=== PATIENT | female | born 1955 | race Caucasian/White ===

== ENCOUNTER 2020-02-27 14:53 | Outpatient (CLI) | payer MEDICARE, SELFPAY ==
--- NOTE | ~2020-02-27 | MM_ITS ---
EXAMINATION: MM screening tu BI w lamberto HISTORY: Screening TECHNIQUE: Craniocaudal and mediolateral oblique 3-D tomosynthesis images were obtained and synthetic 2-D images were generated. CAD analysis was submitted and interpreted. COMPARISON: Comparison to multiple prior studies sequentially, with oldest reviewed study dated 03/06. BREAST PARENCHYMAL COMPOSITION: Breast composed of scattered areas of fibroglandular density. FINDINGS: There is no evidence of suspicious mass, calcification, or architectural distortion to sugg est malignancy in either breast. There has been no suspicious interval change. IMPRESSION: 1. No mammographic evidence of malignancy. 2. Recommend routine screening mammography in one year. BI-RADS Category 1: Negative Reviewed, dictated and finalized at location A. COMPLIANCE
== END 2020-02-27 14:54 | disposition home or self-care (01) ==
LOC: ANHIMG 14:58
PROVIDERS: PCP Internal Medicine; Visit Provider Internal Medicine
DX: Z12.31 Encounter for screening mammogram for malignant neoplasm of breast (principal)
CPT/HCPCS: 77063; 77067

== ENCOUNTER → 2021-01-20 11:08 | Outpatient (CLI) | payer MEDICARE, SELFPAY ==
--- NOTE | ~2021-01-20 | XR_ITS ---
EXAMINATION:XR_CERV2-3V_CR DATE: 01/20/2021 11:32 INDICATION: Neck pain TECHNIQUE: AP, lateral, lateral swimmers and odontoid views of the cervical spine are provided. COMPARISON: 12/16/2015 FINDINGS: There are 3 mm of stable anterolisthesis of C3 on C4. There are changes of anterior fusion at C5-6. There is severe loss of intervertebral disc space height at C6-7. There is moderate facet os teoarthritis at C5-6. The odontoid is intact. No fracture is identified. The vertebral body heights a re maintained. Prevertebral soft tissues are normal. IMPRESSION: 1. Changes of anterior fusion at C5-6 with moderate to severe spondylosis at C6-7. No acute findings. Reviewed, dictated and finalized at location A. RVENTIONAL CARDIOLOGIST IMPRESSION: 1. Changes of anterior fusion at C5-6 with moderate to severe spondylosis at C6 -7. No acute findings.
== END ==
PROVIDERS: PCP Internal Medicine; Visit Provider Internal Medicine
DX: M47.892 Other spondylosis, cervical region (principal); Z98.1 Arthrodesis status
CPT/HCPCS: 72040

== ENCOUNTER → 2021-02-04 12:08 | Outpatient (CLI) | payer MEDICARE, SELFPAY ==
--- NOTE | ~2021-02-04 | MR_ITS ---
EXAMINATION: MR cervical spine wo con DATE: 02/04/2021 12:54 INDICATION: Neck pain. TECHNIQUE: Magnetic resonance imaging (MRI) of the cervical spine was performed without intravenous c ontrast. Sequences included sagittal T2-weighted FSE, sagittal STIR FSE, sagittal T1-weighted FSE, ax ial MERGE, and axial T2-weighted FSE. COMPARISON: Cervical spine MRI 06/03/2014 FINDINGS: There is 5 degrees dextrocurvature of cervical spine. There is 2 mm anterolisthesis of C3 o n C4 and C4 on C5. There are changes of anterior fusion procedure at C5-C6 with healed interbody bone graft and anterior plate and screws. There is mildly decreased disc height at C4-C5 and severely dec reased disc height at C6-C7 with endplate remodeling. The spinal cord signal intensity is normal. The following disc levels are specifically discussed: C2-C3: The disc does not extend beyond the endplate margin. There is no uncovertebral joint osteoarth ritis. There is severe bilateral facet joint osteoarthritis. There is no neural foraminal stenosis. T here is no central canal stenosis. C3-C4: There is a central extrusion. There is mild bilateral uncovertebral joint osteoarthritis. Ther e is mild right and severe left facet joint osteoarthritis. There is mild left neural foraminal steno sis. There is mild central canal stenosis. C4-C5: The disc is bulging. There is mild bilateral uncovertebral joint osteoarthritis. There is mild bilateral facet joint osteoarthritis. There is mild left neural foraminal stenosis. There is mild ce ntral canal stenosis. C5-C6: There is no uncovertebral joint hypertrophy. There is no facet joint osteoarthritis. There is no neural foraminal stenosis. There is no central canal stenosis. C6-C7: The disc is bulging. There is severe bilateral uncovertebral joint osteoarthritis. There is mo derate right and severe left facet joint osteoarthritis. There is mild bilateral neural foraminal shanti nosis. There is mild central canal stenosis. C7-T1: The disc does not extend beyond the endplate margin. There is no uncovertebral joint osteoarth ritis. There is severe bilateral facet joint osteoarthritis. There is mild left neural foraminal sten osis. There is no central canal stenosis. IMPRESSION: 1. Worsened severe cervical spondylosis. 2. Anterior fusion procedure at C5-C6. Reviewed, dictated and finalized at location A. CTOR BUSINESS MANAGEMENT
== END ==
PROVIDERS: PCP Internal Medicine; Visit Provider Internal Medicine
DX: M47.813 Spondylosis without myelopathy or radiculopathy, cervicothoracic region (principal); Z98.1 Arthrodesis status; M48.03 Spinal stenosis, cervicothoracic region
CPT/HCPCS: 72141

== ENCOUNTER 2021-04-06 14:30 | Outpatient (CLI) | payer MEDICARE, SELFPAY ==
--- NOTE | ~2021-04-06 | MM_ITS ---
EXAMINATION: MM screening tu BI w lamberto HISTORY: Screening mammogram TECHNIQUE: Craniocaudal and mediolateral oblique 3-D tomosynthesis images were obtained and synthetic 2-D images were generated. CAD analysis was submitted and interpreted. COMPARISON: 02/27/2020, 01/26/2019, 01/12/2018 bilateral screening mammogram examinations BREAST PARENCHYMAL COMPOSITION: There are scattered areas of fibroglandular density. FINDINGS: New grouped suspicious irregular microcalcifications in the mid to posterior upper central right breast 6 cm deep to the nipple on cc view; diagnostic right mammogram with magnification views is recommended, with ultrasound if required. Otherwise there is no evidence of suspicious mass, calcification, or architectural distortion to sugg est malignancy in either breast. There has been no suspicious interval change. IMPRESSION: 1. Suspicious irregular grouped microcalcifications in the mid to posterior upper central right breas t 2. Diagnostic right mammogram with magnification views views is recommended, with ultrasound if requi red BI-RADS Category 0: Incomplete: Needs additional imaging evaluation. Reviewed, dictated and finalized at location A. ISH SPEAKING BABYSITTER IMPRESSION: 1. Suspicious irregular grouped microcalcifications in the mid to posterior upp er central right breast 2. Diagnostic right mammogram with magnification views views is recommended, wi th ultrasound if required BI-RADS Category 0: Incomplete: Needs additional imaging evaluation.
== END 2021-04-06 14:31 | disposition home or self-care (01) ==
LOC: ANHIMG 14:32
PROVIDERS: PCP Internal Medicine; Visit Provider Internal Medicine
DX: Z12.31 Encounter for screening mammogram for malignant neoplasm of breast (principal); R92.8 Other abnormal and inconclusive findings on diagnostic imaging of breast
CPT/HCPCS: 77063; 77067

== ENCOUNTER 2021-05-04 11:20 | Outpatient (CLI) | payer MEDICARE, SELFPAY ==
--- NOTE | ~2021-05-04 | MMUS_ITS ---
EXAMINATION: MM diagnostic mammo unilat RT, US breast RT limited HISTORY: Suspicious irregular grouped microcalcifications reported in the posterior upper central rig ht breast on April 06, 2019 screening mammogram TECHNIQUE: Additional 3-D ML tomosynthesis images of the right breast were performed and synthetic 2- D images were generated. Magnification ML, MLO and CC views. CAD analysis was submitted and interpret ed. High resolution targeted 11:00-1:00 right breast ultrasound was performed. COMPARISON: April 06, 2021, February 27, 2020 bilateral screening mammogram examinations FINDINGS: MAMMOGRAPHIC FINDINGS: Suspicious grouped microcalcifications are again noted in the posterior upper central right breast ULTRASOUND: No suspicious mass or shadowing is noted in the area of microcalcifications. IMPRESSION: 1. Suspicious irregular grouped microcalcifications in the posterior upper central right breast, with out ultrasound correlate 2. Stereotactic biopsy is recommended BI-RADS category 4, suspicious findings. Dr. Augustine telephoned the report and stereotactic biopsy recommendation on 05/04/2021 at 1218 hours to Damon Jackson's emergency telephone answering service. Dr. Augustine telephoned the report and stereotactic biopsy recommendation again on 05/04/2021 at 1306 hour s to Daquan Dutton. Reviewed, dictated and finalized at location A. IMPRESSION: 1. Suspicious irregular grouped microcalcifications in the posterior upper cent ral right breast, without ultrasound correlate 2. Stereotactic biopsy is recommended BI-RADS category 4, suspicious findings. Dr. Augustine telephoned the report and stereotactic biopsy recommendation on at [address] Jackson's emergency telephone answering service. Dr. Augustine telephoned the report and stereotactic biopsy recommendation again on 05/04/2021 at 1306 hours to Daquan Dutton. IMPRESSION: 1. Suspicious irregular grouped microcalcifications in the posterior upper cent ral right breast, without ultrasound correlate 2. Stereotactic biopsy is recommended BI-RADS category 4, suspicious findings. Dr. Augustine telephoned the report and stereotactic biopsy recommendation on 3/21/2 022 [address] Jackson's emergency telephone answering service. Dr. Augustine telephoned the report and stereotactic biopsy recommendation again on 05/04/2021 at 1306 hours to Daquan Dutton.
== END 2021-05-04 11:21 | disposition home or self-care (01) ==
LOC: ANHIMG 11:28
PROVIDERS: PCP Internal Medicine; Visit Provider Physician Assistant
DX: R92.8 Other abnormal and inconclusive findings on diagnostic imaging of breast (principal)
CPT/HCPCS: 76642; 77065

== ENCOUNTER 2021-05-14 10:55 | Outpatient (CLI) | payer MEDICARE, SELFPAY ==
--- NOTE | ~2021-05-14 | MM_ITS ---
EXAMINATION: MM stereotactic specimen RT, MM post biopsy diagnostic RT, MM stereotactic bx RT, Specim en Radiograph, Tissue Marker Clip Placement, Unilateral Mammogram DATE: 05/14/2021 12:36 (accession [id number]), 05/14/2021 12:36 (accession [id number]), 05/14 12:35 (accession [id number]) INDICATION: Abnormal mammogram: Suspicious upper mid right grouped microcalcifications. TECHNIQUE AND FINDINGS: The risks and potential benefits of the procedure were discussed with the patient and written informe d consent was obtained. Timeout procedure was performed. The patient was placed in the prone position on the dedicated stereotactic table with the right breast in lateral medial compression, and the are a of interest was localized and targeted utilizing digital imaging with stereotaxis. After sterile preparation of the skin, 1% lidocaine was utilized for local anesthesia at the skin pun cture site and 1% lidocaine with epinephrine was utilized for deeper local anesthesia/is about the bi opsy site. A 9G Zenogen vacuum assisted biopsy needle was advanced to the level of the calcification o f interest from a lateral approach utilizing stereotactic guidance and a total of 12 tissue core biop sies were obtained. A specimen radiograph demonstrates that the calcifications of interest are included within the tissue cores. A tissue marker clip was then placed at the biopsy site. A digital mammographic exposure co nfirmed the successful deployment of the biopsy marker. The needle was removed and hemostasis was ac hieved. A sterile bandage was applied. The patient tolerated the procedure well and there is no macho dence of significant immediate complication. The patient was given verbal as well as written postpro cedural instructions prior to discharge from the department. Tissue cores were submitted to surgical pathology for histologic analysis. A 2-view right unilateral digital mammogram was obtained post procedure, demonstrating the tissue mar ker clip in expected position. IMPRESSION: 1. Successful stereotactic biopsy of upper mid right breast grouped microcalcifications, followed b y tissue marker clip placement. Please refer to pathology report for histologic analysis. Reviewed, dictated and finalized at Location A. Reviewed, dictated and finalized at location A. IMPRESSION: 1. Successful stereotactic biopsy of upper mid right breast grouped microcalc ifications, followed by tissue marker clip placement. Please refer to patholog y report for histologic analysis. IMPRESSION: 1. Successful stereotactic biopsy of upper mid right breast grouped microcalc ifications, followed by tissue marker clip placement. Please refer to patholog y report for histologic analysis.
== END 2021-05-14 10:56 | disposition home or self-care (01) ==
PROVIDERS: PCP Internal Medicine; Visit Provider Physician Assistant
DX: D24.1 Benign neoplasm of right breast (principal)
CPT/HCPCS: 19081; 77065; 88305; A4648

== ENCOUNTER 2021-07-03 00:52 | Day surgery (SDC) | payer MEDICARE, SELFPAY ==
[2021-06-18 14:52] VITALS: BMI 22.4
--- NOTE | 2021-07-02 15:58 | P.HP_ITS ---
History of Present Illness History of Present Illness Consent: Risks, benefits, and alternatives have been discussed and questions answered. Patient agrees to proceed with procedure. Chief complaint: diarrhea Narrative: Stephanie Sanchez is a 66 year old female who is being investigated for persistent diarrhea. She had soft and urgent stools for the past several years. She had tried Viberzi which worked for few months but then quit working. She had seen a doctor in [place] who could give her no advice except to poop in your pants . There has been no weight loss and no blood in the stools. Review of Systems Review of Systems: All systems reviewed & are unremarkable except as noted in HPI and below PMFSH Family History Family History Sibling Diabetes mellitus Mother Hypertension Family history of Alzheimer's disease, Onset Age: 85 Patient's mother is , Onset Age: 85 Father Family history of lung cancer, Onset Age: 78 Family history of malignant neoplasm of urinary bladder, Onset Age: 78 Patient's father is , Onset Age: 78 Other Family history of arthritis Family history of cardiovascular disease Family history of malignant neoplasm of breast Family history of malignant neoplasm of male breast Social History Social History Smoking status: Former smoker Tobacco type: cigarettes Second hand tobacco smoke exposure: No Smoking end date: 02/14/85 Alcohol intake: current Drinks per week: 5 Substance use: never Living arrangements: with family Gender identity (if verbalized by the patient): Female Spiritual care concerns: No Meds Home Medications and Allergies Home Medications Medication Instructions Recorded Confirmed Type estradiol 2 mg tablet 2 mg PO DAILY 01/09/20 07/03/21 History progesterone micronized 200 mg 400 mg PO DAILY cap 05/26/21 07/03/21 History capsule cholecalciferol (vitamin D3) 125 mcg PO DAILY 06/18/21 07/03/21 History [Vitamin D3] methyltestosterone 45 mg PO DAILY 06/18/21 07/03/21 History omeprazole 20 mg PO DAILY PRN 06/18/21 07/03/21 History thyroid 1 mg PO DAILY 06/18/21 07/03/21 History Allergies Allergy/AdvReac Type Severity Reaction Status Date / Time codeine Allergy Unknown Vomiting Verified 07/03/21 06:45 meperidine Allergy Unknown Vomiting Verified 07/03/21 06:45 morphine Allergy Unknown Vomiting Verified 07/03/21 06:45 oxycodone Allergy Unknown Vomiting Verified 07/03/21 06:45 NARCOTICS AdvReac Intermediate N&V, Uncoded 07/03/21 06:45 MIGRAINES Exam Resp: Auscultation: clear to auscultation bilaterally Cardio: Rate: regular rate Rhythm: regular rhythm GI: GI Palp: Yes Soft to palpation and No Tenderness to palpation present (GI) Assessment and Plan Assessment and plan (1) Chronic diarrhea: Code(s): K52.9 - Noninfective gastroenteritis and colitis, unspecified Status: Acute Assessment and Plan: Colonoscopy with possible biopsy or polypectomy or cautery or injection of substances.
[2021-07-03 06:46] VITALS: BP 127/69; PULSE 94; RESP 16; TEMP 36.9; O2SAT 99; BMI 22.1
[2021-07-03] MEDS: LACTATED RINGERS 1,000 ML 150 ML IV CONT (06:55)
[2021-07-03 08:24] VITALS: BP 105/55; PULSE 84; RESP 22; O2SAT 98
[2021-07-03 08:34] VITALS: BP 107/66; PULSE 77; RESP 22; O2SAT 98
[2021-07-03 08:44] VITALS: BP 128/73; PULSE 70; RESP 20; O2SAT 99
== END 2021-07-03 08:54 | disposition home or self-care (01) ==
PROVIDERS: PCP Internal Medicine; Visit Provider Internal Medicine Gastroenterology
PROC: 0DJD8ZZ Inspection of Lower Intestinal Tract, Via Natural or Artificial Opening Endoscopic (ICD-10-PCS; CPT 45378; principal; 2021-07-03 08:00)
DX: K52.831 Collagenous colitis (principal); K52.832 Lymphocytic colitis; Z87.891 Personal history of nicotine dependence
CPT/HCPCS: 45380; 88305; J2704; J7120

== ENCOUNTER 2021-12-21 14:29 | Outpatient (CLI) | payer MEDICARE, SELFPAY ==
--- NOTE | ~2021-12-21 | XR_ITS ---
EXAMINATION: XR chest 2V DATE: 12/21/2021 14:51 INDICATION: Cough TECHNIQUE: PA and lateral views of the chest are obtained. COMPARISON: None available FINDINGS: The lungs are free of acute opacities. No pleural effusion or pneumothorax. The cardiomedia stinal silhouette is normal. There are changes of anterior fusion in the lower cervical spine. IMPRESSION: 1. No acute cardiopulmonary abnormality. Reviewed, dictated and finalized at location B. UTER ASSEMBLER
== END 2021-12-21 14:30 | disposition home or self-care (01) ==
PROVIDERS: PCP Internal Medicine; Visit Provider Internal Medicine
DX: R05.9 Cough, unspecified (principal)
CPT/HCPCS: 71046

== ENCOUNTER 2022-12-23 08:30 | Outpatient (CLI) | payer MEDICARE, SELFPAY ==
--- NOTE | ~2022-12-23 | MM_ITS ---
EXAMINATION: MM screening tu BI w lamberto HISTORY: Screening mammogram TECHNIQUE: Craniocaudal and mediolateral oblique 3-D tomosynthesis images were obtained and synthetic 2-D images were generated. CAD analysis was submitted and interpreted. COMPARISON: 04/06/2021, 02/27/2020, 01/26/2019 BREAST PARENCHYMAL COMPOSITION:There are scattered areas of fibroglandular density. FINDINGS: Right breast biopsy marker noted. No suspicious mass, calcification, or architectural disto rtion are identified in either breast to suggest malignancy. There has been no suspicious interval ch sunny. IMPRESSION: No mammographic evidence of malignancy. Recommend routine screening mammography in one year. BI-RADS Category 1: Negative Reviewed, dictated and finalized at location . SKILLS INSTRUCTOR
== END 2022-12-23 08:31 | disposition home or self-care (01) ==
PROVIDERS: PCP Internal Medicine
DX: Z12.31 Encounter for screening mammogram for malignant neoplasm of breast (principal)
CPT/HCPCS: 77063; 77067

== ENCOUNTER 2024-01-17 10:14 | Outpatient (CLI) | payer MEDICARE, SELFPAY ==
--- NOTE | ~2024-01-17 | MM_ITS ---
EXAMINATION: MM screening tu BI w lamberto HISTORY: Screening TECHNIQUE: Craniocaudal and mediolateral oblique 3-D tomosynthesis images were obtained and synthetic 2-D images were generated. CAD analysis was submitted and interpreted. COMPARISON: Comparison to multiple prior studies sequentially, with oldest reviewed study dated 04/06. BREAST PARENCHYMAL COMPOSITION: Not dense: There are scattered areas of fibroglandular density. FINDINGS: There is no evidence of suspicious mass, calcification, or architectural distortion to sugg est malignancy in either breast. There has been no suspicious interval change. IMPRESSION: 1. No mammographic evidence of malignancy. 2. Recommend routine screening mammography in one year. BI-RADS Category 1: Negative Reviewed, dictated and finalized at location B. ECT CONTROL OFFICER
== END 2024-01-17 10:15 | disposition home or self-care (01) ==
LOC: ANHIMG 10:15
PROVIDERS: PCP Internal Medicine; Visit Provider Internal Medicine
DX: Z12.31 Encounter for screening mammogram for malignant neoplasm of breast (principal)
CPT/HCPCS: 77063; 77067

== ENCOUNTER 2024-09-27 14:21 | Outpatient (CLI) | payer MEDICARE, SELFPAY ==
--- NOTE | ~2024-09-27 | XR_ITS ---
EXAM: XR knee RT 3V DATE: 09/27/2024 14:38 HISTORY: Pain . COMPARISON: None available. FINDINGS: Normal mineralization. Possible cortical irregularity along the weightbearing surface of t he lateral femoral condyle (LFC). No lytic or blastic lesion. Mild medial joint space narrowing and t ricompartmental osteophytosis. No erosion or periosteal change. Moderate volume joint fluid. Generali zed soft tissue swelling about the knee. IMPRESSION: Cortical regularity along the LFC, may represent an osteochondral lesion, which would be better evaluated with MR of the knee. Moderate joint effusion. Mild tricompartment osteoarthritis. Ge neralized soft tissue swelling, correlate for clinical findings of infection. Reviewed, dictated and finalized at location K. IMPRESSION: Cortical regularity along the LFC, may represent an osteochondral l esion, which would be better evaluated with MR of the knee. Moderate joint effu earl. Mild tricompartment osteoarthritis. Generalized soft tissue swelling, cor relate for clinical findings of infection.
== END 2024-09-27 14:22 | disposition home or self-care (01) ==
LOC: MICIMG 14:22
PROVIDERS: PCP Internal Medicine; Visit Provider Nurse Practitioner
DX: M25.561 Pain in right knee (principal)
CPT/HCPCS: 73562

== ENCOUNTER 2024-10-09 10:15 | Inpatient (IN) | payer MEDICARE, SELFPAY ==
[2024-10-09] VITALS (9 sets, daily range): BP systolic 115–177; BP diastolic 69–107; PULSE 83–90; RESP 14–20; TEMP 36.4–36.7; O2SAT 92–99; BMI 23.3
--- NOTE | ~2024-10-09 | CT_ITS ---
EXAMINATION: CTA BRAIN/CAROTID DATE: 10/09/2024 13:40 INDICATION: Stroke presenting with confusion TECHNIQUE: Computed tomographic angiography (CTA) of the head and neck was performed with 100 mL Omnipaque-350 intravenous contrast. Multiplanar reconstructions and maximum intensity projection 3D-reconstructions of the carotid arteries and of the intracranial arteries were created by the technologist on a separate workstation. Automated exposure control and iterative reconstruction technique were employed.The dose-length product was 967.20 mGy-cm. COMPARISON: Head CT dated 10/09/2024 FINDINGS: Intracranial arteries Vertebral arteries are codominant. There is no hemodynamically significant stenosis in the vertebral, basilar and internal carotid arteries. Both A1 and P1 segments are patent. The left A1 segment is diminutive with collateral flow to the left anterior cerebral artery supplied via the right internal carotid artery and a patent anterior communicating artery which is of larger caliber than the A1 segment. There are no aneurysms identified. Cerebral arterial arborization appears symmetric. No abnormal enhancing brain lesions. Carotid arteries: The aortic arch and the great vessels arising from the arch are normal in caliber with no dissection or hemodynamically significant stenosis. There is no evident atherosclerotic plaque with 0% stenosis of the right and left carotid bulbs relative to normal distal artery lumen diameter (NASCET criteria). Cervical soft tissues are unremarkable. Moderate cervical spondylosis with C5-C6 anterior spinal fusion with anterior plate and screw fixation. 3 mm anterolisthesis C3 on C4. Mild right-sided and moderate left-sided biapical pleural-parenchymal scarring. IMPRESSION: 1. No evident atherosclerotic plaque with 0% stenosis of the right carotid bulb relative to normal distal artery lumen diameter (NASCET criteria). 2. Unremarkable cerebral CT angiogram with no evident thrombosis, hemodynamically significant stenosis or aneurysm. Reviewed, dictated and finalized at location A. IMPRESSION: 1. No evident atherosclerotic plaque with 0% stenosis of the right carotid bulb relative to normal distal artery lumen diameter (NASCET criteria). 2. Unremarkable cerebral CT angiogram with no evident thrombosis, hemodynamical ly significant stenosis or aneurysm.
--- NOTE | ~2024-10-09 | MR_ITS ---
EXAMINATION: MR brain/brain stem wo/w con DATE: 10/10/2024 09:51 INDICATION: Transient memory loss TECHNIQUE: Magnetic resonance imaging (MRI) of the brain and brainstem was performed without and with 13 mL Multihance intravenous contrast. Sequences included sagittal and axial T1-weighted SE, axial diffusion-weighted FS SE, axial 3D SWAN, axial T2-weighted FLAIR, and axial T2-weighted FSE. Postcontrast axial and coronal T1-weighted SE was obtained. Apparent diffusion coefficient (ADC) maps were created. COMPARISON: None. FINDINGS: 3 mm focus of restricted diffusion along the posterior medial left temporal lobe which would be consistent with acute infarct. Couple small old lacunar infarcts at the anterior limb of the left internal capsule in the left frontal lobe centrum semiovale. No intracranial hemorrhage or abnormal intracranial mass lesion. There are scattered areas of nonspecific increased T2-weighted signal intensity in the cerebral white matter, predominantly involving the deep and periventricular white matter. There are no intraparenchymal signal abnormalities seen on the other pulse sequences. The ventricles are symmetric and normal in size. There are no abnormal extra-axial fluid collections. Flow voids are seen in the cerebral arteries on the T2-weighted sequences consistent with their expected patency. Mucosal thickening throughout the paranasal sinuses with mucous in the dependent aspect of the left frontal, left maxillary and right sphenoid sinuses consistent with acute sinusitis. Visualized orbits and soft tissues are unremarkable. There are no areas of abnormal enhancement on the post contrast images. IMPRESSION: 1. Tiny acute infarct in the posterior medial left temporal lobe. 2. Chronic age-related changes the brain as well as a couple small old lacunar infarcts in the left frontal lobe centrum semiovale and anterior limb of the left internal capsule. 3. Sinus disease with fluid in the left frontal, left maxillary and right sphenoid sinuses consistent with acute sinusitis. Reviewed, dictated and finalized at location A. IMPRESSION: 1. Tiny acute infarct in the posterior medial left temporal lobe. 2. Chronic age-related changes the brain as well as a couple small old lacunar infarcts in the left frontal lobe centrum semiovale and anterior limb of the le ft internal capsule. 3. Sinus disease with fluid in the left frontal, left maxillary and right sphen oid sinuses consistent with acute sinusitis.
--- NOTE | ~2024-10-09 | CT_ITS ---
EXAMINATION: CT brain wo con DATE: 10/09/2024 12:35 INDICATION: Confusion TECHNIQUE: Computed tomography (CT) of the abdomen and pelvis was performed without intravenous contrast. The dose-length product was 529.67 mGy-cm. Automated exposure control and iterative reconstruction technique were employed. COMPARISON: None. FINDINGS: Brain parenchymal volume is normal for age. No ventriculomegaly or midline shift. Basilar cisterns are patent. No acute intracranial hemorrhage, infarction, mass or mass effect. There is mucosal thickening of the ethmoid, maxillary, sphenoid sinuses with air-fluid levels in the left maxillary and right sphenoid sinuses. Mastoids are pneumatized. No depressed skull fractures. IMPRESSION: 1. No acute intracranial abnormality. 2: Moderate sinusitis, possibly acute. Reviewed, dictated and finalized at location O.
--- NOTE | 2024-10-09 10:29 | ECG_ITS ---
Test Date: 2024-10-09 10:32:12 Measurements Intervals [place] Rate: 89 P: 51 SD: 145 QRS: -9 QRSD: 90 T: 59 QT: 346 QTc: 421 Interpretive Statements SINUS RHYTHM POSSIBLE LEFT ATRIAL ENLARGEMENT POSSIBLE RIGHT VENTRICULAR CONDUCTION DELAY BASELINE ARTIFACT- I, III, AVL BORDERLINE ECG No previous ECG available for comparison Electronically Signed On 10-09-2024 10:47:12 CDT by Sixto Torres D.O.
--- OUTSIDE RECORDS SUMMARY | 2024-10-09 10:42 | XMS_ITS | Encounter Summary ---
Author Organization [facility] Address [address] [place] [address] Phone Care Team Providers Care Pipe Fitter Welding Name Role Phone Dwain Jackson MD Primary Care Provider [phone] Encounter Details Date Type Department Care Team (Late st Contact Info) Description 02/01/2019 Orders Only [facility] Scanning, Provider Social History Tobacco Use Types Packs/Day Years Used Date Smoking Tobacco: Former Alcohol Use Standard Drinks/Week Comments Yes 0 (1 standard drink = 0.6 oz pur e alcohol) Comments Unknown Sex and Gender Information Value Date Recorded Sex Assigned at Not on file Legal Sex 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 Gender Identity Not on file Sexual Orientation Not on file documented as of this encounter Plan of Treatment Not on file documented as of this encounter Procedures Procedure Name Priority Date/Time Associated Diagnosis Comments SCAN - RADIOLOGY/IMAGING 02/01/2019 documented in this encounter Results * SCAN - RADIOLOGY/IMAGING (02/01/2019) Anatomical Region Laterality Modality Other us Provider Scanning Final Result documented in this encounter Visit Diagnoses Not on filedocumented in this encounter Care Teams Pipe Fitter Welding Relationship Specialty Start Date End Date Dwain Jackson MD [address] [place] [address] PCP - General Internal Medicine 05/09/17 documented as of this encounter
--- OUTSIDE RECORDS SUMMARY | 2024-10-09 10:42 | XMS_ITS | Encounter Summary ---
Author Organization [facility] Address [address] [place] [address] Care Team Providers Care Roast Master Name Role Phone Unavailable Primary Care Provider Unavailabl e Encounter Details Date Type Department Care Team (Late st Contact Info) Description 02/27/2021 Lab Requisition [facility] [address] [place] [id number] Eagle Marquez MD [address] [place] [address] Social History Tobacco Use Types Packs/Day Years Used Date Smoking Tobacco: Never Smokeless Tobacco: Never Alcohol Use Standard Drinks/Week Comments Not Currently 0 (1 standard drink = 0.6 oz pur e alcohol) Comments Unknown Sex and Gender Information Value Date Recorded Sex Assigned at Not on file Legal Sex Female 3:02 PM BREAKER UP Gender Identity Not on file Sexual Orientation Not on file documented as of this encounter Plan of Treatment Not on file documented as of this encounter Procedures Procedure Name Priority Date/Time Associated Diagnosis Comments DERMATOPATHOLOGY Routine 02/26/2021 12:0 0 AM BREAKER UP documented in this encounter Results * DERMATOPATHOLOGY (02/26/2021 12:00 AM BREAKER UP) Case Report Dermatopathology Report Case: [id number] Authorizing Provider: Eagle Marquez MD Collected: 02/26/2021 12:00 AM Ordering Location: [facility] Received: 02/27/2021 07:15 AM Pathologist: Miguel Angel Perez MD Specimen: Skin, left FA 8:44 PM [facility]ERMAT[facility] Final Diagnosis Specimen A. SKIN, left FA: DERMATOFIBROMA (D23.9) 2 8:44 PM [facility] DERMAT[facility]ATHOLOGY [facility] at [address] [facility] Clinical History ISK vs DF vs SCCA vs other. [id number] 2 8:44 PM [facility] Gross Description Specimen A: Received is one formalin filled container labeled with the patient's name and designated left FA. The specimen consists of a shave biopsy measuring 4x4x1 mm. Jar 0. 2 8:44 PM [facility]ERMAT[facility]ATH[facility] Microscopic Description Specimen A. SKIN, left FA: There is epidermal hyperplasia. Within the dermis, there are fibrohistiocytic cells (Factor XIIIA positive and MART-1/Melan A negative) in haphazard array among coarse collagen bundles. 2 8:44 PM [facility] DERMATOPATHOLOGY [facility] Disclaimer An external and internal positive and negative controls are appropriate for the histochemical, immunohistochemical and immunofluorescence stain(s) in this case (if any), except where stated explicitly. The performance characteristics of the stain(s) cited in this report were developed and its performance characteristic determined by the Dermatopathology Laboratory at [facility], directed by Dr. Herbert Perez. These tests need not be, and therefore are not, approved by the [place] Food and Drug Administration. The tests are used for clinical purposes. Billing Codes Specimen Charges Stain Charges 63368 1 [id number] 1 1 2 8:44 PM [facility] DERMATOPATH[facility]Y [facility] Embedded Images 2 8:44 PM [facility] Pathology/Cytolog y TISSUE SPECIMEN FROM SKIN / Unknown 02/26/2021 02/27/2021 7:15 AM BREAKER UP us Eagle Marquez MD LAB - PATHOLOGY/CYTOLOGY ORDER MARGARETTE Final Result DERMATOPATHOLOGY LABORATORY [facility] - Department of Dermatology [address] [phone] documented in this encounter Visit Diagnoses Not on filedocumented in this encounter
--- OUTSIDE RECORDS SUMMARY | 2024-10-09 10:42 | XMS_ITS | Clinical Summary ---
Author Organization [facility] C Address [address] [place] [address] Care Team Providers Care School Bus Driver/Custodian Name Role Phone Dwain Jackson MD Primary Care Provider [phone] Allergies Active Allergy Reactions Criticality Noted Date Comments Acetaminophen Codeine Hydrocodone Meperidine Medications thyroid (ARMOUR THYROID) 120 mg tablet 0.75 tablets (90 mg total) Active melatonin tablet Take by mouth Active prasterone, dhea, 50 mg capsule Take by mouth Active progesterone (PROMETRIUM) 100 mg capsule Take 1 capsule (100 mg total) by mouth daily Active cholecalciferol (VITAMIN D-3) 5,000 unit capsule Take 1 capsule (5,000 Units total) by mouth daily Active ascorbic acid (VITAMIN C) 1,000 mg tablet Take 2 tablets (2,000 mg total) by mouth daily Active evening primrose oil 500 mg capsule Take 5.2 capsules (2,600 mg total) by mouth Active coenzyme Q10 200 mg capsule Take 1 capsule (200 mg total) by mouth daily Active fluocinolone in oil (DermOtic) 0.01 % dropsIndication s:Otitis Externa Eczema Administer 4 drops into each ear nightly 20 mL 1 1 Active omeprazole (PriLOSEC) 20 mg capsule 8 Active ciprofloxacin (CILOXAN) 0.3 % ophthalmic solution USE 1 DROP IN AFFECTED EYE(S) EVERY 4 HOURS WHILE AWAKE 2 Active ESTRADIOL ORAL Take by mouth A ctive budesonide EC (ENTOCORT EC) 3 mg 24 hr capsule Take 3 capsules (9 mg total) by mouth daily 3 Active Active Problems Problem Noted Date Diagnosed Date Age-related osteoporosis wit hout current pathological fracture 03/19/2020 Tinnitus of both ears 07/14/2017 Chronic diffuse otitis externa of both ears 06/16 Otalgia of both ears 07/14/2017 Sensorineural hearing loss ( SNHL) of left ear with unrestricted hearing of right ear 07/14/2017 Pain in shoulder 05/09/2015 Post-menopausal osteoporosis 11/12/2013 Surgical History Surgery Date Site/Laterality Comments BUNIONECTOMY HYSTERECTOMY HAND SURGERY NECK SURGERY Medical History Medical History Date Comments Hx Other Medical 1999 bunionoctomy; L aterality: left Hx Other Medical 2009 bunionectomy; L aterality: right Hx Other Medical 2007 hand surgery; L aterality: bilateral Gastroesophageal reflux disease GERD Arthritis Arthritis Thyroid disease Tinnitus HL (hearing loss) Dizziness Family History Medical History Relation Name Comments Cancer Father Cancer Other 1 Family history of Cancer; Heart failure Other 2 Family history of Congestive heart failure; Diabetes Other 3 Family history of Diabetes mellitus; Heart disease Other 4 Family history of Heart disease; Hypertension Other 5 Family history of Hypertension; Hip fracture Neg Hx Osteoporosis Neg Hx Relation Name Status Comments Father Other 1 Other 2 Other 3 Other 4 Other 5 Social History Tobacco Use Types Packs/Day Years Used Date Smoking Tobacco: Former Smokeless Tobacco: Never Alcohol Use Standard Drinks/Week Comments Yes 0 (1 standard drink = 0.6 oz pur e alcohol) Comments Unknown Sex and Gender Information Value Date Recorded Sex Assigned at Not on file Legal Sex Female 2:43 AM DISINTEGRATOR Gender Identity Not on file Sexual Orientation Not on file Obstetrics History Last Filed Vital Signs Vital Sign Reading Time Taken Comments Blood Pressure 126/72 07/14/2017 1:38 PM CDT Pulse 68 07/14/2017 1:38 PM CDT Temperature 36.8 C (98.2 F) 11/20/2019 1:04 PM CDT Respiratory Rate 17 01/29/2021 11:34 AM DISINTEGRATOR Oxygen Saturation - - Inhaled Oxygen Concentration - - Weight 61 kg (134 lb 8 oz) 06/04/2022 9:46 AM CD T Height 165.7 cm (5' 5.25) 06/04/2022 9:46 AM CD T Body Mass Index 22.21 06/04/2022 9:46 AM CDT Plan of Treatment Health Maintenance Due Date Last Done Comments Breast Cancer Screening-Mammogram 1954 Colon Cancer Screening-Colonoscopy 1954 Depression Screening 1954 Fall Risk Assessment 1954 Hepatitis C Screening 1954 DTaP/Tdap/Td Vaccine (1 - Tdap) 1965 Hepatitis B Screening 1972 Pneumococcal vaccine 65+ (1 of 1 - PCV) 2004 Zoster Vaccine (1 of 2) 2004 Well Visit 65+ 06/30/2019 Covid-19 Vaccine (3 - 2023-2 5 season) 2023 05/20/2020, 04/28/2020 Osteoporosis Screening-Bone Density Scan 06/04/2024 06/04/2022, 05/29/2021, 03/19/2020, Additional history exists Influenza Vaccine (#1) 2024 Procedures Procedure Name Priority Date/Time Associated Diagnosis Comments DEXA TBS AXIAL SKELETON BONE DENSITY 1 OR MORE SITES Schedule Routine, Read Routine (OP Routine) 06/04/2022 10:06 AM CDT Age-related osteoporosis without current pathological fracture from Last 3 Months or Most Recently Relevant to Health Maintenance Results * Dexa TBS Axial Skeleton Bone Density 1 or more sites (06/04/2022 10:06 AM CDT) Anatomical Region Laterality Modality Wrist, Body N/A Radiographic Iwona ging Narrative 06/09/2022 11:42 AM CDT Patient Name: Stephanie Sanchez Date of : 1955 Date of scan: 06/04/2022 Bone mineral density was performed on a [employer] Densitometer. Based on machine cross-calibration and precision studies the least significant changes of this densitometer is 0.024 g/cm2 at the spine, 0.020 g/cm2 at the total proximal femur, and 0.014g/cm2 at the forearm. HISTORY: This is a 66 y.o. postmenopausal female with a history of osteoporosis, thyroid disease, and vitamin D deficiency. She reports that she has quit smoking. She has never used smokeless tobacco. Currently on treatment with calcium, vitamin D, hormone replacement therapy, and thyroid hormone and previously treated with ibandronate (Boniva). INDICATIONS: Menopause status and history of osteoporosis. FINDINGS: BONE MINERAL DENSITY OF THE LUMBAR SPINE Bone Mineral Density (BMD) of the lumbar spine was measured from L1-L4 and the average density was calculated to be 0.828 gm/cm2. This corresponds to a T-score (standard deviations from the mean of young adults) of -2.0. When compared to the previous study of 05/29/2021 there has been no significant changes in bone density. BONE MINERAL DENSITY OF THE PROXIMAL FEMUR Bone Mineral Density (BMD) of the left hip total was found to be 0.728 gm/cm2. This corresponds to a T-score standard deviations from the mean of young adults of -1.8. Femoral neck is 0.618 gm/cm2 with a T-score (standard deviations from the mean of young adults) of -2.1. When compared to the previous study of 05/29/2021 there has been no significant changes in bone density. SUMMARY: Bone mineral density shows evidence of low bone mass at the lumbar spine and proximal femur and moderately increased fracture risk (Osteopenia). There has been no significant changes in bone density since previous measurement. The lumbar spine Trabecular Bone Score is 1.237 which suggests partially degraded bone microarchitecture compared to the general population. Final decisions regarding diagnostic or therapeutic recommendations should include BMD, TBS, additional clinical risk factors as well the clinical context of the patient. Please see attached TBS results for further details. ADDITIONAL COMMENTS: Postmenopausal Women and Men Over 50: Diagnostic criteria: Osteoporosis: BMD at or below -2.5 T-score; Osteopenia (low bone mass): BMD between -1.0 and -2.5 T-score. If the patient has a history of a fragility fracture, a fracture that occurred with trauma equivalent to a fall from a standing position or less, then the diagnosis is osteoporosis regardless of bone density. The history and data sections of the bone mineral density scan were prepared by Jocelyn Che)(CBDT) who is accredited by the International Society of Clinical Densitometry. The overall patient assessment and scan interpretation were performed by Maye Posadas M.D. who is certified by the International Society of Clinical Densitometry. [id number] us Saima Morris DNP IMG DXA PROCEDURES Final Result from Last 3 Months or Most Recently Relevant to Health Maintenance Insurance [facility] PPO TNA MEDICARE Care Teams School Bus Driver/Custodian Relationship Specialty Start Date End Date Dwain Jackson MD [address] [facility] [address] [place] [address] PCP - General Internal Medicine 05/09/17
--- OUTSIDE RECORDS SUMMARY | 2024-10-09 10:42 | XMS_ITS | Clinical Summary ---
Author Organization [facility] Address [address] [place] [address] Phone Care Team Providers Care Mortuary Operations Manager Name Role Phone Dwain Jackson Primary Care Provider [phone] Allergies No known active allergies Medications esomeprazole (NexIUM) 20 mg Capsule, Delayed Release(E.C.) Take 20 mg by mouth daily before breakfast. Active progesterone micronized (PROMETRIUM) 100 mg Capsule Take 100 mg by mouth daily. Active ascorbic acid, vitamin C, (VITAMIN C) 1,000 mg Tablet Take 2,000 mg by mouth daily. Active budesonide (ENTOCORT EC) 3 mg Enteric Coated 24 hour capsule TAKE 3 CAPSULES BY MOUTH EVERY DAY 08/01/19 22 Active cholecalciferol , Vitamin D3, 125 mcg (5,000 unit) Capsule Take 5,000 Units by mouth daily. Active Evening [place] Oil 500 mg Capsule Take 2,600 mg by mouth. Active thyroid, pork, (ARMOUR THYROID) 120 mg tablet 90 mg. Active coenzyme Q10 200 mg Capsule Take 200 mg by mouth daily. Active OTHER testosterone 2 mg/gm cream 2 mg/gm CREAM compound ; every day Active ESTRADIOL ORAL Take by mouth. Active omeprazole (PriLOSEC) 20 mg Capsule, Delayed Release(E.C.) Take 1 Capsule (20 mg) by mouth daily as needed for indigestion. 90 Capsule 3 3 1:24 PM FORENSIC BALLISTICS EXPERT 06/30/19 23 Active fluconazole (DIFLUCAN) 150 mg tablet Take 1 tablet today, then 1 tablet in 72 hours 2 Tablet 3 7:18 PM CDT 08/24/19 23 Active erythromycin (ILOTYCIN) 5 mg/gram (0.5 %) ointment Apply a small amount to eyelid three times daily for 10 days after surgery. 3.5 Gram 1 3 3:22 PM CDT 09/17/19 23 Active spironolactone (ALDACTONE) 50 mg tablet Take 1 Tablet (50 mg) by mouth daily. 90 Tablet 3 3 1:24 PM FORENSIC BALLISTICS EXPERT 09/21/19 23 Active budesonide (ENTOCORT EC) 3 mg Enteric Coated 24 hour capsule Take 3 Capsules (9 mg) by mouth daily. 270 Capsule 2 4 1:09 PM CDT 02/16/19 24 Active thyroid, pork, ([place] Thyroid) 120 mg tablet Take 1 Tablet (120 mg) by mouth daily. 90 Tablet 03/10/19 24 Active estradioL 0.1 mg/24 hr patch APPLY 1 PATCH TO SKIN TWICE WEEKLY AFTER REMOVING OLD PATCH. 8 Patch 4 3:19 PM FORENSIC BALLISTICS EXPERT 03/10/19 24 Active levothyroxine 150 mcg tablet Take 1 Tablet (150 mcg) by mouth daily 30 minutes before breakfast. 90 Tablet 4 3:19 PM FORENSIC BALLISTICS EXPERT 03/10/19 24 Active estradioL (ESTRACE) 2 mg tablet Take 1 Tablet (2 mg) by mouth daily. 90 Tablet 2 4 11:19 AM CDT 05/16/19 24 Active levothyroxine 137 mcg tablet Take 1 Tablet (137 mcg) by mouth once daily 30-60 minutes before food and other meds. 60 Tablet 4 3:16 PM CDT 06/16/19 24 Active progesterone micronized (PROMETRIUM) 200 mg Capsule Take 1 Capsule (200 mg) by mouth daily at bedtime. 90 Capsule 06/27/19 24 Active omeprazole (PriLOSEC) 20 mg Capsule, Delayed Release(E.C.) Take 1 Capsule (20 mg) by mouth 1 time daily as needed for indigestion. 90 Capsule 3 4 2:36 PM FORENSIC BALLISTICS EXPERT 07/12/19 24 Active progesterone micronized (PROMETRIUM) 200 mg Capsule Take 1 Capsule (200 mg) by mouth daily at bedtime. 90 Capsule 4 12:47 PM CDT 08/31/19 24 Active budesonide (ENTOCORT EC) 3 mg Enteric Coated 24 hour capsule Take 3 Capsules (9 mg) by mouth daily. 270 Capsule 2 4 12:58 PM CDT 09/05/19 24 Active estradioL (ESTRACE) 2 mg tablet Take 1 Tablet (2 mg) by mouth daily. 90 Tablet 2 5 12:22 PM CDT 10/13/19 24 Active progesterone micronized (PROMETRIUM) 200 mg Capsule Take 1 Capsule (200 mg) by mouth daily at bedtime. 90 Capsule 10/13/19 24 Active levothyroxine 125 mcg tablet Take 1 tablet by mouth 30 minutes before breakast 30 Tablet 1 4 8:43 AM CDT 12/06/19 24 Active betamethasone dipropionate (DIPROSONE) 0.05 % Lotion Apply to scalp and ears twice daily as needed for itching 60 mL 3 4 2:43 PM FORENSIC BALLISTICS EXPERT 01/05/20 24 Active ketoconazole (NIZORAL) 2 % Shampoo Apply wash to scalp three times per week. Allow to sit on scalp for 5 min prior to rinsing. 120 mL 6 4 2:43 PM FORENSIC BALLISTICS EXPERT 01/05/20 24 Active nirmatrelvir-ri tonavir (Paxlovid) 300(150mg x 2)-100 mg oral pack TAKE DIRECTED ON PACKAGE 30 Each 5 12:20 PM FORENSIC BALLISTICS EXPERT 03/26/19 25 Active benzonatate (TESSALON) 100 mg capsule Take 1 Capsule (100 mg) by mouth every 8 hours as needed. 15 Capsule 5 12:20 PM FORENSIC BALLISTICS EXPERT 03/26/19 25 Active progesterone micronized (PROMETRIUM) 200 mg Capsule Take 1 Capsule (200 mg) by mouth daily at bedtime. 90 Capsule 5 12:22 PM CDT 06/21/19 25 Active omeprazole (PriLOSEC) 20 mg Capsule, Delayed Release(E.C.) Take 1 Capsule (20 mg) by mouth 1 time daily as needed for indegesion. 90 Capsule 3 5 3:00 PM CDT 08/21/19 25 Active scopolamine (TRANSDERM-SCOP ) 1 mg/72 hr patch Apply 1 Patch to skin as directed every third day as needed for motion sickess. 4 Patch 5 3:20 PM CDT 08/23/19 Active estradioL (ESTRACE) 2 mg tablet Take 1 Tablet (2 mg) by mouth daily. 90 Tablet 5 12:29 PM CDT 10/02/19 25 Active liothyronine (Cytomel) 5 mcg Tablet Take 1 Tablet (5 mcg) by mouth 30 minutes before breakfast daily. 90 Tablet 5 12:29 PM CDT 10/03/19 25 Active levothyroxine 112 mcg tablet TAKE 1 TABLET BY MOUTH DAILY OR DIRECTED 90 Tablet 5 12:29 PM CDT 10/03/19 Active progesterone micronized (PROMETRIUM) 200 mg Capsule Take 1 Capsule (200 mg) by mouth daily at bedtime. 90 Capsule 5 12:29 PM CDT 10/03/19 25 Active levothyroxine 112 mcg tablet TAKE 1 TABLET BY MOUTH DAILY OR DIRECTED 90 Tablet 5 1:02 PM CDT 07/02/19 25 2024 Discontinued liothyronine (Cytomel) 5 mcg Tablet Take 1 Tablet (5 mcg) by mouth 30 minutes before breakfast daily. 90 Tablet 5 1:02 PM CDT 07/02/192024 Discontinued Active Problems No known active problems Family History Medical History Relation Name Comments Cancer Father Lung Cancer Father Other Mother Relation Name Status Comments Father Mother Social History Tobacco Use Types Packs/Day Years Used Date Smoking Tobacco: Former Cigarettes 1 15 1 5 - 1979 Alcohol Use Standard Drinks/Week Comments Yes 0 (1 standard drink = 0.6 oz pur e alcohol) socially Comments No Sex and Gender Information Value Date Recorded Sex Assigned at Not on file Legal Sex Female 3:43 AM FORENSIC BALLISTICS EXPERT Gender Identity Not on file Sexual Orientation Not on file Last Filed Vital Signs Vital Sign Reading Time Taken Comments Blood Pressure 130/74 08/23/2022 2:20 PM CDT Pulse 77 11/28/2019 10:09 AM CDT Temperature 36.7 C (98 F) 05/24/2018 7:59 AM CDT Respiratory Rate 20 05/24/2018 7:59 AM CDT Oxygen Saturation 100% 05/24/2018 7:59 AM CDT Inhaled Oxygen Concentration - - Weight 61.2 kg (135 lb) 08/23/2022 2:20 PM CDT Height 165.1 cm (5' 5) 08/23/2022 2:20 PM CDT Body Mass Index 22.47 08/23/2022 2:20 PM CDT Plan of Treatment Health Maintenance Due Date Last Done Comments DTAP/TDAP/TD VACCINES (1 - Tdap) 1973 FIT-DNA Q 3 years 06/30/1999 FIT/FOBT Q 1 year 06/30/1999 Flex Sig/CT Colonography Q 5 years 06/30/1999 PNEUMOCOCCAL VACCINE 50+ YEA RS (1 of 1 - PCV) 2004 ZOSTER VACCINE (1 of 2) 2004 COLORECTAL SCREENING 02/14/2014 02/15/2004 Colorectal Cancer Screening 02/14/2014 BREAST CANCER SCREENING 12/24/2023 12/23/2022 INFLUENZA VACCINE (#1) 2024 OSTEOPOROSIS SCREENING 06/05/2027 3, 06/04/2022, 05/29/2021, Additional history exists RSV VACCINE (60+ or ) (1 - 1-dose 75+ series) 2029 Medical Devices Implanted Type Area Nc Manager Device Identifier Shelf Expiration Date Model / Serial / Lot Mesh Restorelle L [id number] - Sna Implanted:Qty: 1 on 05/23/2018 by Grace Maria MD at [facility] Mesh N/A: Abdomen COLOPLAST UROLOGY CARE 11/29/2020 [id number] / NA / [id number] Gynecare Tvt Exact Tvtrl - Sna Implanted:Qty: 1 on 05/23/2018 by Grace Maria MD at [facility] Sling N/A: Vagina [employer]- [employer] 12/14/2018 TVT RL / NA / [id number] Procedures Procedure Name Priority Date/Time Associated Diagnosis Comments MAMMO 3D MURIEL SCREEN BILAT W OR WO CAD Routine 12/23/2022 Encounter for screening mammogram for breast cancer from Last 3 Months or Most Recently Relevant to Health Maintenance Results * MAMMO SCRN BILAT 3D MURIEL W OR WO CAD (12/23/2022) Anatomical Region Laterality Modality Breast Bilateral Mammography us Vandana Stover MD MAMMO ORDERABLES Final Result from Last 3 Months or Most Recently Relevant to Health Maintenance Insurance AETNA PPO MCR RX AETNA Medicare Part D RX [employer] PLANS (INTERNAL) [facility] Advance Directives For more information, please contact: [phone] * Full Code (Latest Code Status on File) Date Activated Date Inactivated Comments 05/23/2018 5:20 PM 05/24/2018 6:49 PM Care Teams Mortuary Operations Manager Relationship Specialty Start Date End Date Dwain Jackson DO [address] [facility] [address] [place] [address] PCP - General Internal Medicine 05/04/18
--- OUTSIDE RECORDS SUMMARY | 2024-10-09 10:42 | XMS_ITS | Clinical Summary ---
Author Organization [facility] Address [address] [place] [address] Care Team Providers Care High School Math Teacher Name Role Phone Unavailable Primary Care Provider Unavailabl e Source Comments [facility],non-owned Affiliates and Associated Physician Practices is amultiple site organization consisting of ambulatory clinics and hospital sitesin [place], [place], [place] and [place]. This disclosure is being madepursuant to the Care Everywhere program and may not contain all information available regarding this patient. Last updated 17.[facility] Allergies No known active allergies Medications * Be aware that medications may not be up to date on this document. Alwaysverify current medications with the patient. amitriptyline (ELAVIL) 25 MG tablet Take 25 mg by mouth once daily Active vitamin D3 (CHOLECALCIFERO L) 125 MCG (5000 UT) capsule Take 5,000 Units by mouth once daily Active ubiquinine/nohemy min-e (COENZYME Q10) 200 MG capsule Take 200 mg by mouth once daily Active Cod Liver Oil 5000-500 UNIT/5ML Take 460 mg by mouth Active eluxadoline (VIBERZI) 100 MG tablet Take 1 tablet by mouth once daily Active Evening [place] Oil 500 MG Take 2,600 mg by mouth Active Melatonin ER 1 MG TBCR Active omeprazole (PRILOSEC) 20 MG capsule Take 20 mg by mouth once daily 04/23/2020 Active DHEA 50 MG Active progesterone micronized (PROMETRIUM) 100 MG capsule Take 100 mg by mouth once daily Active thyroid (ARMOUR THYROID) 120 MG tablet 90 mg Active Ascorbic Acid 1000 MG Take 2,000 mg by mouth once daily Active testosterone 2 mg/gm cream 2 mg/gm CREA compound Apply to affected area once daily Active Social History Tobacco Use Types Packs/Day Years Used Date Smoking Tobacco: Never Smokeless Tobacco: Never Alcohol Use Standard Drinks/Week Comments Not Currently 0 (1 standard drink = 0.6 oz pur e alcohol) Comments Unknown Sex and Gender Information Value Date Recorded Sex Assigned at Not on file Legal Sex Female 3:02 PM SUBSTATION MANAGER Gender Identity Not on file Sexual Orientation Not on file Last Filed Vital Signs Vital Sign Reading Time Taken Comments Blood Pressure 140/82 07/31/2020 9:55 AM CDT Pulse 84 07/31/2020 9:55 AM CDT Temperature 36.8 C (98.3 F) 05/29/2020 8:46 AM CDT Respiratory Rate - - Oxygen Saturation 98% 07/31/2020 9:55 AM CDT Inhaled Oxygen Concentration - - Weight 65.3 kg (144 lb) 07/31/2020 9:55 AM CDT Height 165.1 cm (5' 5) 07/31/2020 9:55 AM CDT Body Mass Index 23.96 07/31/2020 9:55 AM CDT Plan of Treatment Health Maintenance Due Date Last Done Comments BONE DENSITY TESTING 1955 COLOGUARD (AGES 45-75) - COL ON CA SCREENING 1954 COLON MONITORING 1954 COLONOSCOPY - COLON CA SCREENING 1954 CT COLONOGRAPHY - COLON CA SCREENING 1954 Colorectal Cancer Screening 1954 FIT - COLON CA SCREENING 1954 FLEX SIG - COLON CA SCREENING 1954 LIPID TESTING 1954 MAMMOGRAM 1954 HEPATITIS C SCREENING 06/24/1972 DTAP/TDAP/TD VACCINES (1 - Tdap) 1973 PNEUMOCOCCAL VACCINE 50+ (1 of 1 - PCV) 2004 ZOSTER VACCINE (1 of 2) 2004 COVID-19 VACCINE (1 - 2023-2 5 season) 2023 DEPRESSION SCREENING 02/15/2024 MEDICARE AWV CALENDAR YEAR 2024 INFLUENZA VACCINE (#1) 2024 Respiratory Syncytial Virus (RSV) Vaccine Pt: or over 60 yrs (1 - 1-dose 75+ series) 2029 HEPATITIS B VACCINE Aged Out No longe r eligible based on patient's age to complete this topic HIB VACCINE Aged Out No longer eligi ble based on patient's age to complete this topic HPV VACCINE Aged Out No longer eligi ble based on patient's age to complete this topic MENINGOCOCCAL (Group B) VACC INE SHARED DECISION-MAKING Aged Out No longer eligibl e based on patient's age to complete this topic MENINGOCOCCAL GROUPS A/C/Y/W VACCINE Aged Out No longer eligible b ased on patient's age to complete this topic Insurance AETNA MEDICARE ADV
--- OUTSIDE RECORDS SUMMARY | 2024-10-09 10:42 | XMS_ITS | Clinical Summary ---
Author Organization [facility] Care Team Providers Care Loader Operator Name Role Phone Unavailable Primary Care Provider Unavailabl e Social History Tobacco Use Types Packs/Day Years Used Date Smoking Tobacco: Never Assessed Comments Unknown Sex and Gender Information Value Date Recorded Sex Assigned at Not on file Legal Sex Female 8:40 AM WELDER FITTER HELPER Gender Identity Not on file Sexual Orientation Not on file Plan of Treatment Health Maintenance Due Date Last Done Comments Hepatitis C Virus (HCV) Screening 1955 TdaP Immunization 1955 Cologuard 06/30/1999 Colonoscopy 06/30/1999 Colorectal Cancer Screening 06/30/1999 Immunochemical Fecal Occult Blood 06/30/1999 Pneumococcal Immunization (5 0+ years) (1 of 1 - PCV) 2004 Zoster Immunization (1 of 2) 2004 SARS-COV-2 Immunization (1 - season) 2023 Influenza Immunization (#1) 2024 Respiratory Syncytial Virus (RSV) Immunization (Adult) (1 - 1-dose 75+ series) 2029 Hepatitis B Immunization Aged Out No longer eligible based on patient's age to complete this topic Human Papillomavirus (HPV) Immunization Aged Out No longer eligible b ased on patient's age to complete this topic Meningococcal Immunization (ACWY) Aged Out No longer eligible based on patient's age to complete this topic Rotavirus Immunization Aged Out No lo nger eligible based on patient's age to complete this topic
--- OUTSIDE RECORDS SUMMARY | 2024-10-09 10:42 | XMS_ITS | Encounter Summary ---
Author Organization [facility] Address [address] [place] [address] Care Team Providers Care Pottery Decorator Name Role Phone Unavailable Primary Care Provider Unavailabl e Encounter Details Date Type Department Care Team (Late st Contact Info) Description 08/27/2022 Lab Requisition [facility] - DermPath Lab [address] [facility], [facility] [place] [id number] Eagle Marquez MD [address] [facility] [place] [place] [address] Social History Tobacco Use Types Packs/Day Years Used Date Smoking Tobacco: Never Smokeless Tobacco: Never Alcohol Use Standard Drinks/Week Comments Not Currently 0 (1 standard drink = 0.6 oz pur e alcohol) Comments Unknown Sex and Gender Information Value Date Recorded Sex Assigned at Not on file Legal Sex Female 3:02 PM ON AIR TALENT Gender Identity Not on file Sexual Orientation Not on file documented as of this encounter Plan of Treatment Not on file documented as of this encounter Procedures Procedure Name Priority Date/Time Associated Diagnosis Comments DERMATOPATHOLOGY Routine 08/26/2022 12:0 0 AM CDT documented in this encounter Results * DERMATOPATHOLOGY (08/26/2022 12:00 AM CDT) Case Report Dermatopathology Report Case: [id number] Authorizing Provider: Eagle Marquez MD Collected: 08/26/2022 12:00 AM Ordering Location: [facility] DermPath Lab Received: 08/27/2022 10:52 AM Pathologist: Mesha Jean-Baptiste MD Specimen: Skin, left forearm 3 3:39 PM CDT DERMATOPATHOLOGY LABORATORY Final Diagnosis Specimen A. SKIN, left forearm: DERMATOFIBROMA (D23.9) NOT PRESENT AT SAMPLED MARGIN 3 3:39 PM T DERMATOPATHOLOGY LABORATORY at 1539 CDT Clinical History DF Path#[id number] Check margin 3 3:39 PM CDT DERMATOPATHOLOGY LABORATORY Gross Description Specimen A: Received is one formalin filled container labeled with the patient's name and designated left forearm. The specimen consists of a 10x5x4 mm piece of skin. The margin is inked green. The specimen is bisected lengthwise and submitted in 1 cassette. Jar 0. 3 3:39 PM CDT DERMATOPATHOLOGY LABORATORY Microscopic Description Specimen A. SKIN, left forearm: There is epidermal hyperplasia. Within the dermis, there are fibrohistiocytic cells in haphazard array among coarse collagen bundles. The proliferation is patchy positive for FactorXIIIa and negative for SOX-10 and CD34. This lesion is not present at the sampled margin of the specimen. 3 3:39 PM T DERMATOPATHOLOGY LABORATORY Disclaimer An external and internal positive and negative controls are appropriate for the histochemical, immunohistochemical and immunofluorescence stain(s) in this case (if any), except where stated explicitly. The performance characteristics of the stain(s) cited in this report were developed and its performance characteristic determined by the Dermatopathology Laboratory at [facility], directed by Dr. Herbert Perez. These tests need not be, and therefore are not, approved by the [place] Food and Drug Administration. The tests are used for clinical purposes. Billing Codes Specimen Charges Stain Charges 12922 1 30123 66779 70698 1 1 1 3 3:39 PM CDT DERMATOPATHOLOGY LABORATORY Embedded Images 3 3:39 PM CDT DERMATOPATHOLOGY LABORATORY Pathology/Cytolog y TISSUE SPECIMEN FROM SKIN / Unknown 08/26/2022 08/27/2022 10:52 AM CDT us Eagle Marquez MD LAB - PATHOLOGY/CYTOLOGY ORDER MARGARETTE Final Result DERMATOPATHOLOGY LABORATORY [facility] - Department of Dermatology [facility] Specialized [facility] [facility], [address]rd Floor [address] [phone] documented in this encounter Visit Diagnoses Not on filedocumented in this encounter
[2024-10-09 10:49] LABS: Hematocrit 43.3 % (37.0-47.0); Hemoglobin 14.3 g/dL (12.0-15.0); Immature Granulocyte Percent A 0.4 % (0-0.5); Lymphocytes Absolute Auto 1.69 K/mm3 (0.9-3.2); Mean Corpuscular HGB Conc 33.0 g/dl (32-36); Mean Corpuscular Hemoglobin 29.9 pg (26-34); Mean Corpuscular Volume 90.6 fl (80-100); Nucleated Red Blood Cells Absolute Auto 0.000 K/mm3 (0.0-0.012); Nucleated Red Blood Cells Perc 0.0 % (0.0-0.2); Platelet Count Result 262 k/mm3 (150-375); Red Blood Count 4.78 M/mm3 (4.2-5.4); White Blood Count 5.7 K/mm3 (4.5-10.0)
[2024-10-09 11:00] LABS: INR 1.0; Prothrombin Time 13.3 Seconds (11.1-14.7)
[2024-10-09 11:01] LABS: Partial Thromboplastin Time 33.2 Seconds (22.3-36.8)
[2024-10-09 11:10] LABS: Alanine Aminotransferase 24 U/L (6-35); Albumin Level 4.4 g/dL (3.5-5.1); Alkaline Phosphatase 53 U/L (38-126); Anion Gap 10 mmol/L (4-12); Aspartate Amino Transferase 31 U/L (14-36); Bilirubin,Total 0.3 mg/dL (0.2-1.3); Blood Urea Nitrogen 16 mg/dL (7-17); Calcium 9.4 mg/dL (8.4-10.2); Carbon Dioxide 23 mmol/L (22-30); Chloride 102 mmol/L (98-107); Estimated CRCL calculation 56 ml/min; Estimated Glomerular Filt Rate > 60; Glucose 99 mg/dL (65-110); Potassium 4.5 mmol/L (3.4-5.0); Sodium 135 mmol/L (137-145); Total Protein 7.9 g/dL (6.3-8.2)
[2024-10-09 11:13] LABS: Add Urine Microscopic? YES; Appearance Urine Clear (Clear); Glucose Urine UA Negative (Negative); Leukocyte Esterase Ur 1+ LEU/UL (Negative); Need Manual Microscopic Reviewed; Nitrate Urine Negative (Negative); Non Pathogenic Casts 0-2; Specific Grav Ur 1.006 (1.001-1.035)
--- OUTSIDE RECORDS SUMMARY | 2024-10-09 11:17 | XMS_ITS | Encounter Summary ---
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
--- OUTSIDE RECORDS SUMMARY | 2024-10-09 11:17 | XMS_ITS | Clinical Summary ---
Author Organization [facility] Address [address] [place] [address] Care Team Providers Care Assistant Professor Name Role Phone Dwain Jackson MD Primary Care Provider [phone] Allergies Active Allergy Reactions Criticality Noted Date [...] on file Legal Sex Female 2:43 AM TALK SHOW HOST Gender Identity Not on file Sexual Orientation Not on file Obstetrics History Last Filed Vital Signs Vital Sign Reading Time Taken Comments Blood Pressure 126/72 07/14/2017 1:38 PM CDT Pulse 68 07/14/2017 1:38 PM CDT Temperature 36.8 C (98.2 F) 11/20/2019 1:04 PM CDT Respiratory Rate 17 01/29/2021 11:34 AM TALK SHOW HOST Oxygen Saturation - - Inhaled Oxygen Concentration [...] Bone mineral density was performed on a [employer] Discovery Densitometer. Based on machine cross-calibration and [...] by the International Society of Clinical Densitometry. [id number] us Saima Morris DNP IMG DXA PROCEDURES Final Result from Last 3 Months or Most Recently Relevant to Health Maintenance Insurance [facility] TNA MEDICARE Care Teams Assistant Professor Relationship Specialty Start Date End Date Dwain Jackson MD [address] [facility] [address] [facility] [address] [place] [address] PCP - General Internal Medicine 05/09/17
--- OUTSIDE RECORDS SUMMARY | 2024-10-09 11:17 | XMS_ITS | Encounter Summary ---
Author Organization [facility] Address [address] [place] [address] Care Team Providers Care Employee Wellness/Fitness Coordinator Name Role Phone Unavailable Primary Care Provider Unavailabl e Encounter Details Date Type Department Care Team (Late st Contact Info) Description 08/27/2022 Lab Requisition [facility] - DermPath Lab [address] [facility], [facility] [place] [phone] Eagle Marquez MD [address] [facility] [place] [address] Social History Tobacco Use Types Packs/Day Years Used Date Smoking Tobacco: Never Smokeless Tobacco: Never Alcohol Use Standard Drinks/Week Comments Not Currently 0 (1 standard drink = 0.6 oz pur e alcohol) Comments Unknown Sex and Gender Information Value Date Recorded Sex Assigned at Not on file 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 Gender Identity Not on file Sexual Orientation Not on file documented as of this encounter Plan of Treatment Not on file documented as of this encounter Procedures Procedure Name Priority Date/Time Associated Diagnosis Comments DERMATOPATHOLOGY Routine 08/26/2022 12:0 0 AM CDT documented in this encounter Results * DERMATOPATHOLOGY (08/26/2022 12:00 AM CDT) Case Report Dermatopathology Report Case: [id number] Authorizing Provider: Eagle Marquez MD Collected: 08/26/2022 12:00 AM Ordering Location: [facility] DermPath Lab Received: 08/27/2022 10:52 AM Pathologist: Mesha Jean-Baptiste MD Specimen: Skin, left forearm 3 3:39 PM CDT DERMATOPATHOLOGY LABORATORY Final Diagnosis Specimen A. SKIN, left forearm: DERMATOFIBROMA (D23.9) NOT PRESENT AT SAMPLED MARGIN 3 3:39 PM T DERMATOPATHOLOGY LABORATORY at 1539 CDT Clinical History DF Path#[id number] Check margin 3 3:39 PM CDT DERMATOPATHOLOGY [...] characteristic determined by the Dermatopathology Laboratory at [facility], directed by Dr. Herbert Perez. These tests need not be, and therefore are not, approved by the [place] Food and Drug Administration. The tests are used for clinical purposes. Billing Codes Specimen Charges Stain Charges 75675 1 33486 34665 66854 1 1 1 3 3:39 PM CDT DERMATOPATHOLOGY LABORATORY Embedded Images 3 3:39 PM CDT DERMATOPATHOLOGY LABORATORY Pathology/Cytolog y TISSUE SPECIMEN FROM SKIN / Unknown 08/26/2022 08/27/2022 10:52 AM CDT us Eagle Marquez MD LAB - PATHOLOGY/CYTOLOGY ORDER MARGARETTE Final Result DERMATOPATHOLOGY LABORATORY [facility] - Department of Dermatology [facility] Specialized Medicine [facility] [facility], 3rd Floor [address] [phone] documented in this encounter Visit Diagnoses Not on filedocumented in this encounter
--- OUTSIDE RECORDS SUMMARY | 2024-10-09 11:17 | XMS_ITS | Clinical Summary ---
Author Organization [facility] Address [address] [facility] [place] [address] Care Team Providers Care Garbage Truck Driver Name Role Phone Unavailable Primary Care Provider Unavailabl e Source Comments [facility],non-owned Affiliates and Associated Physician Practices is amultiple site organization consisting of ambulatory clinics and hospital sitesin [place], [place], [place] and [place]. This disclosure is being madepursuant to the Care Everywhere program and may not contain all information available regarding this patient. Last updated 17.[employer] [facility] Allergies No known active allergies Medications * [...] tablet by mouth once daily Active Evening [place] Oil 500 MG Take 2,600 mg by [...] on file Legal Sex Female 3:02 PM PRINCIPAL SOLUTIONS ARCHITECT Gender Identity Not on file Sexual Orientation [...]
--- OUTSIDE RECORDS SUMMARY | 2024-10-09 11:17 | XMS_ITS | Clinical Summary ---
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
--- OUTSIDE RECORDS SUMMARY | 2024-10-09 11:17 | XMS_ITS | Clinical Summary ---
Author Organization [facility] Address [address] [place] [address] Phone Care Team Providers Care Inside Sales Trainer Name Role Phone Dwain Jackson Primary Care Provider [phone] Allergies No known active allergies Medications esomeprazole [...] 5,000 Units by mouth daily. Active Evening [place] Oil 500 mg Capsule Take 2,600 mg [...] indigestion. 90 Capsule 3 3 1:24 PM SENIOR MEDICAL TECHNOLOGIST 06/30/19 23 Active fluconazole (DIFLUCAN) 150 mg [...] daily. 90 Tablet 3 3 1:24 PM SENIOR MEDICAL TECHNOLOGIST 09/21/19 23 Active budesonide (ENTOCORT EC) 3 mg Enteric Coated 24 hour capsule Take 3 Capsules (9 mg) by mouth daily. 270 Capsule 2 4 1:09 PM CDT 02/16/19 24 Active thyroid, pork, ([place] Thyroid) 120 mg tablet Take 1 Tablet (120 mg) by mouth daily. 90 Tablet 03/10/19 24 Active estradioL 0.1 mg/24 hr patch APPLY 1 PATCH TO SKIN TWICE WEEKLY AFTER REMOVING OLD PATCH. 8 Patch 4 3:19 PM SENIOR MEDICAL TECHNOLOGIST 03/10/19 24 Active levothyroxine 150 mcg tablet Take 1 Tablet (150 mcg) by mouth daily 30 minutes before breakfast. 90 Tablet 4 3:19 PM SENIOR MEDICAL TECHNOLOGIST 03/10/19 24 Active estradioL (ESTRACE) 2 mg [...] indigestion. 90 Capsule 3 4 2:36 PM SENIOR MEDICAL TECHNOLOGIST 07/12/19 24 Active progesterone micronized (PROMETRIUM) 200 [...] itching 60 mL 3 4 2:43 PM SENIOR MEDICAL TECHNOLOGIST 01/05/20 24 Active ketoconazole (NIZORAL) 2 % Shampoo Apply wash to scalp three times per week. Allow to sit on scalp for 5 min prior to rinsing. 120 mL 6 4 2:43 PM SENIOR MEDICAL TECHNOLOGIST 01/05/20 24 Active nirmatrelvir-ri tonavir (Paxlovid) 300(150mg x 2)-100 mg oral pack TAKE DIRECTED ON PACKAGE 30 Each 5 12:20 PM SENIOR MEDICAL TECHNOLOGIST 03/26/19 25 Active benzonatate (TESSALON) 100 mg capsule Take 1 Capsule (100 mg) by mouth every 8 hours as needed. 15 Capsule 5 12:20 PM SENIOR MEDICAL TECHNOLOGIST 03/26/19 25 Active progesterone micronized (PROMETRIUM) 200 [...] on file Legal Sex Female 3:43 AM SENIOR MEDICAL TECHNOLOGIST Gender Identity Not on file Sexual Orientation [...] series) 2029 Medical Devices Implanted Type Area Director Internal Audit Device Identifier Shelf Expiration Date Model / Serial / Lot Mesh Restorelle L 24x8cm [id number] - Sna Implanted:Qty: 1 on 05/23/2018 by Grace Maria MD at [facility] Mesh N/A: Abdomen COLOPLAST UROLOGY CARE 11/29/2020 [id number] / NA / [id number] Gynecare Tvt Exact Tvtrl - Sna Implanted:Qty: 1 on 05/23/2018 by Grace Maria MD at [facility] Sling N/A: Vagina [employer]- [employer] 12/14/2018 TVT RL / NA / [id number] Procedures Procedure Name Priority Date/Time Associated Diagnosis [...] Advance Directives For more information, please contact: [phone] * Full Code (Latest Code Status on File) Date Activated Date Inactivated Comments 05/23/2018 5:20 PM 05/24/2018 6:49 PM Care Teams Inside Sales Trainer Relationship Specialty Start Date End Date Dwain Jackson DO [address] [facility] [address] [place] [address] PCP - General Internal Medicine 05/04/18
--- OUTSIDE RECORDS SUMMARY | 2024-10-09 11:17 | XMS_ITS | Encounter Summary ---
Author Organization [facility] Address [address] [place] [address] Care Team Providers Care Children'S Ministry Director Name Role Phone Unavailable Primary Care Provider Unavailabl e Encounter Details Date Type Department Care Team (Late st Contact Info) Description 02/27/2021 Lab Requisition [facility] DermPath Lab [address] [facility] [place], [facility] [place] [phone] Eagle Marquez MD [address] [place] [address] Social History Tobacco Use Types Packs/Day Years Used Date Smoking Tobacco: Never Smokeless Tobacco: Never Alcohol Use Standard Drinks/Week Comments Not Currently 0 (1 standard drink = 0.6 oz pur e alcohol) Comments Unknown Sex and Gender Information Value Date Recorded Sex Assigned at Not on file Legal Sex Female 3:02 PM NURSE INFORMATICS EDUCATOR Gender Identity Not on file Sexual Orientation Not on file documented as of this encounter Plan of Treatment Not on file documented as of this encounter Procedures Procedure Name Priority Date/Time Associated Diagnosis Comments DERMATOPATHOLOGY Routine 02/26/2021 12:0 0 AM NURSE INFORMATICS EDUCATOR documented in this encounter Results * DERMATOPATHOLOGY (02/26/2021 12:00 AM NURSE INFORMATICS EDUCATOR) Case Report Dermatopathology Report Case: [id number] Authorizing Provider: Eagle Marquez MD Collected: 02/26/2021 12:00 AM Ordering Location: [facility] DermPath Lab Received: 02/27/2021 07:15 AM Pathologist: Miguel Angel Perez MD Specimen: Skin, left FA 8:44 PM [facility] DERMATOPATHOLOGY LABORATORY Final Diagnosis Specimen A. SKIN, left FA: DERMATOFIBROMA (D23.9) 2 8:44 PM [facility] DERMATOPATHOLOGY LABORATORY at [address] [facility] Clinical History ISK vs DF vs SCCA vs other. [id number] 2 8:44 PM [facility] DERMATOPATHOLOGY LABORATORY Gross Description Specimen A: Received is one formalin filled container labeled with the patient's name and designated left FA. The specimen consists of a shave biopsy measuring 4x4x1 mm. Jar 0. 2 8:44 PM [facility] DERMATOPATHOLOGY LABORATORY Microscopic Description Specimen A. SKIN, left FA: There is epidermal hyperplasia. Within the dermis, there are fibrohistiocytic cells (Factor XIIIA positive and MART-1/Melan A negative) in haphazard array among coarse collagen bundles. 2 8:44 PM [facility] DERMATOPATHOLOGY LABORATORY Disclaimer An external and internal positive and negative controls are appropriate for the histochemical, immunohistochemical and immunofluorescence stain(s) in this case (if any), except where stated explicitly. The performance characteristics of the stain(s) cited in this report were developed and its performance characteristic determined by the Dermatopathology Laboratory at [facility], directed by Dr. Herbert Perez. These tests need not be, and therefore are not, approved by the [place] Food and Drug Administration. The tests are used for clinical purposes. Billing Codes Specimen Charges Stain Charges 49555 1 57580 42537 1 1 2 8:44 PM [facility] DERMATOPATHOLOGY LABORATORY Embedded Images 2 8:44 PM [facility] DERMATOPATHOLOGY LABORATORY Pathology/Cytolog y TISSUE SPECIMEN FROM SKIN / Unknown 02/26/2021 02/27/2021 7:15 AM NURSE INFORMATICS EDUCATOR us Eagle Marquez MD LAB - PATHOLOGY/CYTOLOGY ORDER MARGARETET Final Result DERMATOPATHOLOGY LABORATORY [facility] - Department of Dermatology [address], [address] [phone] documented in this encounter Visit Diagnoses Not on filedocumented in this encounter
--- NOTE | 2024-10-09 12:23 | ED.AMS ---
HPI - Altered Mental Status General Chief Complaint: Altered Mental Status Stated Complaint: I lost a chunk of time Time Seen by Provider: 10/09/24 10:30 History of Present Illness HPI narrative: This is a 69-year-old female with no significant past medical history presents ED for confusion. Patient states that a few hours ago, she was sitting at when she ?lost a chunk of time?. She is unsure what happened after her left. When he got back, she apparently had a weak voice normal. She reports that she had a slight headache after this that has since resolved. Denies any other symptoms. Denies fevers, chills, chest pain, shortness of breath. She has been able ambulate without any significant difficulty. Related Data Home Medications ?Medication ?Instructions ?Recorded ?Confirmed ?Last Taken ?Type progesterone micronized 200 mg 400 mg PO DAILY 05/26/21 10/09/24 07/02/21 History capsule cholecalciferol (vitamin D3) 125 125 mcg PO DAILY 06/18/21 10/09/24 07/02/21 History mcg (5,000 unit) tablet (Vitamin D3) testosterone 1 % (50 mg/5 gram) 1 packet transdermal DAILY 09/28/21 10/09/24 Unknown History transdermal gel packet estradiol 2 mg tablet 2 mg PO DAILY 01/05/24 10/09/24 Unknown History levothyroxine 112 mcg tablet 112 mcg PO DAILY@0630 10/09/24 10/09/24 10/09/24 History liothyronine 5 mcg tablet 5 mcg PO DAILY@0630 10/09/24 10/09/24 10/09/24 History Allergies Allergy/AdvReac Type Severity Reaction Status Date / Time codeine Allergy Unknown Vomiting Verified 10/09/24 16:02 meperidine Allergy Unknown Vomiting Verified 10/09/24 16:02 morphine Allergy Unknown Vomiting Verified 10/09/24 16:02 oxycodone Allergy Unknown Vomiting Verified 10/09/24 16:02 NARCOTICS AdvReac Intermediate N&V, Uncoded 10/09/24 16:02 MIGRAINES Review of Systems Review of Systems: Gen.: Denies fevers or chills Eyes: Denies eye pain or visual change ENT: Denies congestion Respiratory: Denies shortness of breath or cough CV: Denies chest pain or palpitations GI: Denies abdominal pain nausea, emesis or diarrhea denies burning, urgency, frequency or hematuria Musculoskeletal: Denies back pain or muscle pain Neuro: Denies numbness, tingling, weakness or focal weakness Skin: Denies rash Except as documented, all other systems reviewed and negative [facility] Past Medical History Medical History Palpitations Left foot pain Herpes zoster without complication Dorsalgia Diarrhea Closed nondisplaced fracture of fifth metatarsal bone of left foot Closed fracture of base of fifth metatarsal bone of left foot Cervicalgia Benign paroxysmal positional vertigo of left ear Colitis Family History Family History Sibling Diabetes mellitus Mother Hypertension Family history of Alzheimer's disease, Onset Age: 85 Patient's mother is , Onset Age: 85 Father Family history of lung cancer, Onset Age: 78 Family history of malignant neoplasm of urinary bladder, Onset Age: 78 Patient's father is , Onset Age: 78 Other Family history of arthritis Family history of cardiovascular disease Family history of malignant neoplasm of breast Family history of malignant neoplasm of male breast Social History Social History Smoking packs per day: 1 Smoking cigarettes per day: 20.0 Years smoked: 15 Smoking pack-years: 15.00 Smoking status: Former smoker Second hand tobacco smoke exposure: No Alcohol intake: current Drinks per week: 5 Substance use: never Substance use type: does not use Do You Feel Safe in your Home?: Yes Lack of Transportation: No Lack of Food: Never True Current Housing: I Have Housing Concerned About Future Housing: No Difficulty Paying Gas/Electric Bills: No Difficulty Paying for Meds: No Currently Unemployed: No Education: Decline to Answer Difficulty w/ Childcare or Family Care: No Living arrangements: with family Occupation/Education: retired Gender identity (if verbalized by the patient): Female Spiritual care concerns: No Exam Narrative: APPEARANCE: No acute distress, nontoxic, resting in bed EYES: EOMI HEENT: Normocephalic, atraumatic, OMM RESPIRATORY: No respiratory distress Clear to auscultation bilaterally with no rhonchi wheezing or rales. CARDIOVASCULAR: Regular rate and rhythm without murmurs rubs or gallops. ABDOMINAL: Soft, nontender, nondistended, no rebound or guarding MUSCULOSKELETAL: Moves all extremities. No clubbing, cyanosis or edema. NEURO: Awake and alert. Following commands, speech normal, no focal deficits. NIHSS 0 SKIN:: Warm, dry. No rashes lesions or abrasions PSYCHIATRIC: Normal affect/mood, Course Vital Signs Vital signs: Vital Signs Temperature 97.7 F 10/09/24 10:25 Pulse Rate 90 10/09/24 10:25 Respiratory Rate 20 10/09/24 10:25 Blood Pressure 173/93 H 10/09/24 10:25 Pulse Oximetry 97 10/09/24 10:25 Oxygen Delivery Room Air 10/09/24 10:25 Temperature 98.0 F 10/09/24 15:11 Pulse Rate 83 10/09/24 16:05 Respiratory Rate 15 10/09/24 15:11 Blood Pressure 141/86 H 10/09/24 15:11 Pulse Oximetry 99 10/09/24 15:11 Oxygen Delivery Room Air 10/09/24 10:31 MDM - Altered Mental Status MDM Narrative Medical decision making narrative: 69-year-old female who presented to the ED for transient altered mental status. On initial evaluation, patient was in no acute distress, afebrile, hemodynamically stable. She had an NIHSS of 0. She was feeling herself at the time of evaluation. Heart and lungs clear. Abdomen soft and nontender. CBC and CMP were without significant abnormalities. CT head showed acute process. Suspect patient did have a TIA. I did reach out to Dr. Mulligan, neurology, who did recommend CTA head/neck, aspirin Plavix, and admission for further CVA rule out. CTA head/neck showed no acute process. I discussed the case with hospitalist who will admit the patient. Differential Diagnosis Differential diagnosis: Likely altered mental status, dementia and other (CVA, TIA) Medical Records Attestation: I reviewed the patient's medical records. Lab Data Attestation: I reviewed the patient's lab results. 10/09/24 10:42 10/09/24 10:42 Labs: Lab Results 10/09/24 10/09/24 Range/Units 10:35 10:42 WBC 5.7 (4.5-10.0) K/mm3 RBC 4.78 (4.2-5.4) M/mm3 Hgb 14.3 (12.0-15.0) g/dL Hct 43.3 (37.0-47.0) % MCV 90.6 (80-100) fl MCH 29.9 (26-34) pg MCHC 33.0 (32-36) g/dl RDW 11.9 (11.5-14.5) % Plt Count 262 (150-375) k/mm3 MPV 9.5 (7.4-10.4) fl Immature Gran % (Auto) 0.4 (0-0.5) % Neut % (Auto) 53.0 (45.5-73.1) % Lymph % (Auto) 29.7 (18.3-44.2) % [place] % (Auto) 9.3 H (2.6-8.5) % Eos % (Auto) 6.9 H (0-4.4) % Baso % (Auto) 0.7 (0.2-1.2) % Lymph # (Auto) 1.69 (0.9-3.2) K/mm3 [place] # (Auto) 0.5 (0.1-0.6) K/mm3 Eos # (Auto) 0.4 H (0-0.3) K/mm3 Baso # (Auto) 0.0 (0.0-0.1) K/mm3 Abs Immat Gran (auto) 0.02 (0.00-0.031) K/mm3 Absolute Neuts (auto) 3.0 (1.3-6.7) K/mm3 Absolute Nucleated RBC 0.000 (0.0-0.012) K/mm3 Nucleated RBC % 0.0 (0.0-0.2) % PT 13.3 (11.1-14.7) Seconds INR 1.0 APTT 33.2 (22.3-36.8) Seconds Sodium 135 L (137-145) mmol/L Potassium 4.5 (3.4-5.0) mmol/L Chloride 102 (98-107) mmol/L Carbon Dioxide 23 (22-30) mmol/L Anion Gap 10 (4-12) mmol/L BUN 16 (7-17) mg/dL Creatinine 0.73 (0.7-1.0) mg/dL Estim Creat Clear Calc 56 ml/min Estimated GFR > 60 (59 - ) Glucose 99 (65-110) mg/dL POC Capillary Glucose 103 (65-105) mg/dl Calcium 9.4 (8.4-10.2) mg/dL Total Bilirubin 0.3 (0.2-1.3) mg/dL AST 31 (14-36) U/L ALT 24 (6-35) U/L Alkaline Phosphatase 53 (38-126) U/L Total Protein 7.9 (6.3-8.2) g/dL Albumin 4.4 (3.5-5.1) g/dL Urine Color Yellow (Yellow) Urine Appearance Clear (Clear) Urine pH 8.0 (5.0-9.0) Ur Specific [place] 1.006 (1.001-1.035) Urine Protein Negative (Negative) mg/dL Urine Glucose (UA) Negative (Negative) mg/dL Urine Ketones Negative (Negative) mg/dL Ur Blood (Man) Negative (Negative) Urine Nitrate Negative (Negative) Urine Bilirubin Negative (Negative) Urine Urobilinogen 0.2 (<2.0) mg/dL Add Ur Microanalysis Reviewed Leukocyte Esterase Rfl 1+ H (Negative) DEMOND/UL Urine RBC 0-2 (0-2) /hpf Urine WBC 0-5 (0-3) /hpf Ur Squamous Epith Cells None seen (Few) /hpf Urine Bacteria None seen /hpf Urine Casts 0-2 Imaging Data Radiologist's impression: Impressions Head CT 10/09/24 12:43 IMPRESSION: 1. No acute intracranial abnormality. 2: Moderate sinusitis, possibly acute. Head/Neck CTA 10/09/24 13:54 IMPRESSION: 1. No evident atherosclerotic plaque with 0% stenosis of the right carotid bulb relative to normal distal artery lumen diameter (NASCET criteria). 2. Unremarkable cerebral CT angiogram with no evident thrombosis, hemodynamically significant stenosis or aneurysm. Discharge Plan Discharge Clinical Impression: Altered awareness, transient Patient Disposition: Still a Patient Condition: Stable
[2024-10-09] MEDS: CLOPIDOGREL BISULFATE 300 MG TABLET PO (13:46)
[2024-10-09] MEDS: ASPIRIN 81 MG CHEWABLE TABLET 324 MG PO (13:48)
--- NOTE | 2024-10-09 14:35 | PM.IMHP ---
H&P: HPI History of Present Illness Date/Time: 10/09/24 14:35 Chief Complaint: Memory Loss Narrative: 69 y/o F with PMH of BPPV and colitis presents here with memory loss. The patient presents here from home for further evaluation of memory loss. The patient reports that she was sitting down to eat breakfast and her had just left the house when her next recollection was her returning home. She states she choked and then coughed so hard that both her arms went numb. She estimates it was around 20 minutes of time loss. Last known well at 8:30 a.m. She reports she lost a chunk time. Post memory loss her family noted that her voice sounded weaker than usual. She also endorsed a mild headache that she described as posterior and dull. She reports this has resolved - did not take medications for this. She denies any focal weakness, focal numbness, vision changes, persistent voice changes, fever, chills, nausea, vomiting, diarrhea, urinary symptoms, dizziness, chest pain, or shortness of breath. She denies any previous history of CVA or TIA. Patient did have a cold over the weekend, tested multiple times for COVID which was negative. Initial VS at presentation: 97.7? F, HR 90, R 20, 173/93, and 97% on RA. ED workup showed: No leukocytosis, no anemia, normal coags, no significant electrolyte derangements, renal function within normal limits, UA showed 1+ leuk esterase otherwise unremarkable. Head CT showed no acute intracranial abnormality, moderate sinusitis possibly acute. Head/neck CTA showed no evident atherosclerotic plaque with 0% stenosis of the right carotid bulb, unremarkable cerebral CT angiogram. EKG showed sinus rhythm, possible left general is min, possible right ventricular conduction delay, baseline artifact. Review of Systems Review of Systems: All systems reviewed & are unremarkable except as noted in HPI and below [facility] Past Medical History Medical History (Updated 10/09/24 @ 22:49 by Elizabet Sahu APRN) Hypothyroidism Palpitations Left foot pain Herpes zoster without complication Dorsalgia Diarrhea Closed nondisplaced fracture of fifth metatarsal bone of left foot Closed fracture of base of fifth metatarsal bone of left foot Cervicalgia Benign paroxysmal positional vertigo of left ear Colitis Family History Family History Sibling Diabetes mellitus Mother Hypertension Family history of Alzheimer's disease, Onset Age: 85 Patient's mother is , Onset Age: 85 Father Family history of lung cancer, Onset Age: 78 Family history of malignant neoplasm of urinary bladder, Onset Age: 78 Patient's father is , Onset Age: 78 Other Family history of arthritis Family history of cardiovascular disease Family history of malignant neoplasm of breast Family history of malignant neoplasm of male breast Social History Social History Smoking packs per day: 1 Smoking cigarettes per day: 20.0 Years smoked: 15 Smoking pack-years: 15.00 Smoking status: Former smoker Second hand tobacco smoke exposure: No Alcohol intake: current Drinks per week: 5 Substance use: never Substance use type: does not use Do You Feel Safe in your Home?: Yes Lack of Transportation: No Lack of Food: Never True Current Housing: I Have Housing Concerned About Future Housing: No Difficulty Paying Gas/Electric Bills: No Difficulty Paying for Meds: No Currently Unemployed: No Education: Decline to Answer Difficulty w/ Childcare or Family Care: No Living arrangements: with family Occupation/Education: retired Gender identity (if verbalized by the patient): Female Spiritual care concerns: No Meds Home Medications and Allergies Home Medications ?Medication ?Instructions ?Recorded ?Confirmed ?Type progesterone micronized 200 mg 400 mg PO DAILY 05/26/21 10/09/24 History capsule cholecalciferol (vitamin D3) 125 125 mcg PO DAILY 06/18/21 10/09/24 History mcg (5,000 unit) tablet (Vitamin D3) testosterone 1 % (50 mg/5 gram) 1 packet transdermal DAILY 09/28/21 10/09/24 History transdermal gel packet estradiol 2 mg tablet 2 mg PO DAILY 01/05/24 10/09/24 History omeprazole 20 mg capsule,delayed 20 mg PO DAILY PRN Indigestion #90 08/20/24 10/09/24 Rx release caps levothyroxine 112 mcg tablet 112 mcg PO DAILY@62910/09/24 10/09/24 History liothyronine 5 mcg tablet 5 mcg PO DAILY@62910/09/24 10/09/24 History Allergies Allergy/AdvReac Type Severity Reaction Status Date / Time codeine Allergy Unknown Vomiting Verified 10/09/24 16:02 meperidine Allergy Unknown Vomiting Verified 10/09/24 16:02 morphine Allergy Unknown Vomiting Verified 10/09/24 16:02 oxycodone Allergy Unknown Vomiting Verified 10/09/24 16:02 NARCOTICS AdvReac Intermediate N&V, Uncoded 10/09/24 16:02 MIGRAINES Vital Signs Vital Signs - 24 hr 10/09/24 10:25 10/09/24 10:31 10/09/24 10:35 Temperature 97.7 F 97.9 F Pulse Rate 90 90 Respiratory Rate 20 17 Blood Pressure 173/93 H 177/107 H Pulse Oximetry 97 97 98 Oxygen Delivery Room Air Room Air 10/09/24 10:36 Temperature Pulse Rate 90 Respiratory Rate Blood Pressure Pulse Oximetry Oxygen Delivery Exam Const: General: comfortable and no acute distress Other: , female, elderly, younger appearance than stated age, nontoxic appearance HENMT: Face/Nose/Sinus: Normal nares present Mouth: Yes moist mucous membranes Eyes: General: appearance normal, both eyes and all related structures Sclera: sclerae normal Pupils: Equal, round and reactive pupils present EOM: EOMs intact bilaterally Resp: Effort & Inspection: normal respiratory effort Auscultation: clear to auscultation bilaterally Cardio: Rate: regular rate Rhythm: regular rhythm Other: S1-S2 present without murmur, rub, ectopy GI: Other: Abdomen soft, nondistended, nontender. Normoactive bowel sounds in all quadrants. Skin: General skin exam: normal color and no rashes or lesions noted Wounds: no wounds Neuro: Speech: normal speech Motor exam (neuro): 5/5 motor strength present throughout Sensory Exam: normal sensation Other: A&O x4, NIH 0 Extrem: General: normal to inspection Psych: Mental Status: mental status grossly normal Affect: normal affect Other: Good insight and judgment, very pleasant H&P: Results Labs Labs: Short CBC 10/09/24 Range/Units 10:42 WBC 5.7 (4.5-10.0) K/mm3 Hgb 14.3 (12.0-15.0) g/dL Hct 43.3 (37.0-47.0) % Plt Count 262 (150-375) k/mm3 BMP 10/09/24 10:42 Sodium 135 L Potassium 4.5 Chloride 102 Carbon Dioxide 23 BUN 16 Creatinine 0.73 Glucose 99 Calcium 9.4 Liver Function 10/09/24 Range/Units 10:42 Total Bilirubin 0.3 (0.2-1.3) mg/dL AST 31 (14-36) U/L ALT 24 (6-35) U/L Alkaline Phosphatase 53 (38-126) U/L Albumin 4.4 (3.5-5.1) g/dL Urine 10/09/24 Range/Units 10:42 Urine Color Yellow (Yellow) Urine Appearance Clear (Clear) Urine pH 8.0 (5.0-9.0) Ur Specific [place] 1.006 (1.001-1.035) Urine Protein Negative (Negative) mg/dL Urine Glucose (UA) Negative (Negative) mg/dL Assessment and Plan Assessment and plan (1) Memory loss of unknown cause: Code(s): R41.3 - Other amnesia Status: Acute Assessment and Plan: New memory loss that occurred on 10/09 that was followed by a mild headache and voice hoarseness. Episode lasted for approximately 20 minutes. Memory loss was transient. No prior history of CVA or TIA. - admission for observation and telemetry - not candidate for thrombolytics or thrombectomy as the symptoms have resolved - head CT, 10/09: 1. No acute intracranial abnormality. 2: Moderate sinusitis, possibly acute - CTA, 10/09: 1. No evident atherosclerotic plaque with 0% stenosis of the right carotid bulb relative to normal distal artery lumen diameter (NASCET criteria). 2. Unremarkable cerebral CT angiogram with no evident thrombosis, hemodynamically significant stenosis or aneurysm. - neurology consulted - recommended MRI and EEG - brain MRI w/wo ordered - echo w/Bubble ordered - neuro checks Q4 - monitor daily labs, check lipid panel and A1C - start Atorvastatin 40 mg PO, Plavix 75 mg PO, ASA 81 mg - consider 30 day event monitoring at discharge (2) Hypothyroidism: Qualifiers: Hypothyroidism type: unspecified Qualified Code(s): E03.9 - Hypothyroidism, unspecified Code(s): E03.9 - Hypothyroidism, unspecified Status: Acute Assessment and Plan: - check TSH, last on file in 2020 - continue Synthroid in interim Plan Diet: Regular GI Prophylaxis: N/a DVT Prophylaxis: SCDs IV fluids: None Lines/Tubes: Peripheral IV Code Status: Full code Quality VTE Prophylaxis VTE prophylaxis: mechanical ordered Hospitalist MIPS Advance Care Plan I have confirmed that the patient's Advanced Care Plan is present, code status is documented, or surrogate decision maker is listed in patient medical record.: Yes Medication Reconciliation I have utilized all available resources to obtain, update and review the patients current medications (includes all prescriptions, OTC, herbals, cannabis, and nutritional supplements).: Yes
--- NOTE | 2024-10-09 15:07 | ECHO_ITS ---
Patient Info Name: Stephanie Sanchez Age: 69 years : 1955 Gender: Female Ht: 65 in Wt: 142 lbs BSA: 1.73 m2 HR: 89 bpm BP: 141 / 86 mmHg Heart Rhythm: Sinus Rhythm Technical Quality: Good Exam Date: 10/09/2024 4:01 PM Patient Status: O Admit Date: 10/09/2024 Exam Type: CA echo doppler w bubble study Complete two-dimensional, color flow and Doppler transthoracic echocardiogram is performed with agitated saline. Staff Referring Physician: Elizabet Sahu Janitorial Tech: Nelsy Moya Attending Provider: Harika Villegas Contrast/Agitated Saline Contrast/Ag. Saline: Agitated Saline Amount: 20.00 ml Existing IV Access: Yes IV Access Condition: patent with no signs of infiltration Summary 1. Left ventricular chamber dimension is moderately enlarged. 2. Left ventricular systolic function is severely reduced, estimated at 25-30. 3. The left ventricular diastolic function is abnormal. 4. Mid to apical segments are severely hypokinetic. Basal segments have normal contractility. This is suggestive of Takotsubo cardiomyopathy. 5. E/e' 16 is elevated. 6. Left atrial chamber dimension is mildly enlarged. 7. There is mild aortic valve sclerosis. 8. There is mild aortic valve regurgitation. 9. There is mild mitral valve regurgitation. 10. There is mild tricuspid valve regurgitation. 11. No pulmonary hypertension, estimated pulmonary arterial systolic pressure is 36 mmHg. Left Ventricle E/e' 16 is elevated. Left ventricular chamber dimension is moderately enlarged. Left ventricular systolic function is severely reduced, estimated at 25-30. The left ventricular diastolic function is abnormal. Mid to apical segments are severely hypokinetic. Basal segments have normal contractility. This is suggestive of Takotsubo cardiomyopathy. Right Ventricle Right ventricular chamber dimension is normal. Right ventricular systolic function is normal. Left Atria Left atrial chamber dimension is mildly enlarged. Right Atria Right atrial chamber dimension is normal. Atrial Septum Intact interatrial septum visualized by 2D and agitated saline imaging. Agitated saline injection with and without valsalva maneuver opacified right side cardiac chambers without shunt to left side cardiac chambers. Aortic Valve The aortic valve is trileaflet. There is mild aortic valve sclerosis. There is no aortic valve stenosis. There is mild aortic valve regurgitation. Pulmonic Valve There is no pulmonic regurgitation. Mitral Valve There is no mitral valve stenosis. There is mild mitral valve regurgitation. Tricuspid Valve There is mild tricuspid valve regurgitation. No pulmonary hypertension, estimated pulmonary arterial systolic pressure is 36 mmHg. Pericardium/Pleural There is no pericardial effusion. Inferior Vena Cava Normal inferior vena cava with >50% collapse upon inspiration consistent with normal right atrial pressure, 5 mmHg. Aorta The aortic root size at the sinus of Valsalva is normal. Left Ventricular Outflow Tract Name Value Normal LVOT 2D LVOT Diameter 2.0 cm LVOT Doppler LVOT Peak Velocity 73 cm/s LVOT Peak Gradient 2 mmHg LVOT Mean Gradient 1 mmHg LVOT VTI 13 cm LVOT VTI/AV VTI Ratio 0.7 LVOT Stroke Volume 44 ml LVOT CO 3.2 l/min LVOT CI 1.8 l/min/m2 Pulmonic Valve Name Value Normal RVOT Doppler RVOT Peak Velocity 58 cm/s RVOT Peak Gradient 1 mmHg PV Doppler PV Peak Velocity 74 cm/s PV Peak Gradient 2 mmHg Mitral Valve Name Value Normal MV Diastolic Function MV E Peak Velocity 89 cm/s MV A Peak Velocity 52 cm/s MV E/A 1.7 MV Decel Time (PW) 212 ms MV Annular TDI MV E/e' (Septal) 17.1 MV E/e' (Lateral) 15.8 MV E/e' (Average) 16.5 Tricuspid Valve Name Value Normal TV Regurgitation Doppler TR Peak Velocity 277 cm/s TR Peak Gradient 31 mmHg Estimated PAP/RSVP RA Pressure 5 mmHg <=5 PA Systolic Pressure 36 mmHg <36 RV Systolic Pressure 36 mmHg <36 TV Annular TDI TV Lateral Michelle s' Velocity 11.4 cm/s >=9.5 Aorta Name Value Normal Ascending Aorta Ao Root Diameter (MM) 3.4 cm Ao Root Diam Index (MM) 2.0 cm/m2 Aortic Valve Name Value Normal AV Doppler AV Peak Velocity 107 cm/s AV Peak Gradient 5 mmHg AV Mean Gradient 2 mmHg AV VTI 20 cm AV Area (Cont Eq VTI) 2.2 cm2 >=3.0 AV Area (Cont Eq Ernesto) 2.2 cm2 AV DI (Ernesto) 0.68 AV Regurgitation 2D LVOT Area 3.3 cm2 Ventricles Name Value Normal LV Dimensions 2D/MM IVS Diastolic Thickness (2D) 0.8 cm 0.6-1.0 LVID Diastole (2D) 5.5 cm 3.8-5.2 LVIW Diastolic Thickness (2D) 0.8 cm 0.6-0.9 LVID Systole (2D) 3.9 cm 2.2-3.5 LVOT Diameter 2.0 cm LV Mass (2D Cubed) 169.48 g 67.00-162.00 LV Mass Index (2D Cubed) 98 g/m2 43-95 Relative Wall Thickness (2D) 0.30 <=0.42 LV Fractional Shortening/Ejection Fraction 2D/MM LV Fractional Shortening (2D) 29 % 27-45 LV EF (2D Teichholz) 55 % LV Diastolic Volume (4C MOD) 91 ml LV EF (4C MOD) 49 % LV Diastolic Volume (2C MOD) 95 ml LV EF (2C MOD) 47 % LV Diastolic Volume (BP MOD) 94 ml 46-106 LV Diastolic Volume Index (BP MOD) 54 ml/m2 29-61 LV Systolic Volume (BP MOD) 49 ml 14-42 LV Systolic Volume Index (BP MOD) 28 ml/m2 8-24 LV EF (BP MOD) 48 % 54-74 LV Diastolic Length (4C) 8.3 cm LV Systolic Length (4C) 7.0 cm LV Stroke Volume (4C MOD) 45 ml Atria Name Value Normal LA Dimensions LA Dimension (MM) 4.0 cm 2.7-3.8 LA Volume (4C A-L) 52 ml LA Volume (BP A-L) 49 ml RA Dimensions RA Area (4C) 10.0 cm2 <=18.0 Report Signatures
--- NOTE | 2024-10-09 15:35 | ADMGEN ---
This patient, Stephanie Sanchez, was admitted to Medical Room 347-01. Patient/family oriented to hospital policies and general routines including ID bracelet, bed and alarms, visiting hours, pain management, procedures, bathroom and other care routines, personal items, smoking policy, room service/diet, and visiting hours. Information on how to activate the Rapid Response Team has been discussed. Patient/Family are encouraged to report perceived risks to care and to ask questions if they do not understand what they are told or what they should do.
[2024-10-10] VITALS (15 sets, daily range): BP systolic 111–130; BP diastolic 52–74; PULSE 76–151; RESP 16–18; TEMP 36.1–36.7; O2SAT 98–100
[2024-10-10] MEDS: LEVOTHYROXINE SODIUM 112 MCG TABLET PO (06:02)
[2024-10-10] MEDS: LIOTHYRONINE SODIUM 5 MCG TABLET PO (06:04)
[2024-10-10 06:30] LABS: Hematocrit 43.0 % (37.0-47.0); Hemoglobin 14.0 g/dL (12.0-15.0); Immature Granulocyte Percent A 0.2 % (0-0.5); Lymphocytes Absolute Auto 1.71 K/mm3 (0.9-3.2); Mean Corpuscular HGB Conc 32.6 g/dl (32-36); Mean Corpuscular Hemoglobin 29.8 pg (26-34); Mean Corpuscular Volume 91.5 fl (80-100); Nucleated Red Blood Cells Absolute Auto 0.000 K/mm3 (0.0-0.012); Nucleated Red Blood Cells Perc 0.0 % (0.0-0.2); Platelet Count Result 245 k/mm3 (150-375); Red Blood Count 4.70 M/mm3 (4.2-5.4); White Blood Count 4.7 K/mm3 (4.5-10.0)
[2024-10-10 07:00] LABS: Hemoglobin A1C 5.2 % (<5.7)
[2024-10-10 07:05] LABS: Alanine Aminotransferase 21 U/L (6-35); Albumin Level 4.1 g/dL (3.5-5.1); Alkaline Phosphatase 49 U/L (38-126); Anion Gap 6 mmol/L (4-12); Aspartate Amino Transferase 34 U/L (14-36); Bilirubin,Total 0.4 mg/dL (0.2-1.3); Blood Urea Nitrogen 15 mg/dL (7-17); Calcium 8.9 mg/dL (8.4-10.2); Carbon Dioxide 28 mmol/L (22-30); Chloride 104 mmol/L (98-107); Cholesterol 183 mg/dL (0-200); Estimated CRCL calculation 51 ml/min; Estimated Glomerular Filt Rate > 60; Glucose 87 mg/dL (65-110); HDL Direct 37 mg/dL; Potassium 4.8 mmol/L (3.4-5.0); Sodium 138 mmol/L (137-145); Total Protein 7.2 g/dL (6.3-8.2); Triglycerides 108 mg/dL (<150)
[2024-10-10 07:30] LABS: Thyroid Stimulating Hormone Reflex < 0.015 uIU/mL (0.465-4.68)
[2024-10-10] MEDS: ASPIRIN 81 MG ENTERIC TABLET PO (08:50)
[2024-10-10] MEDS: CHOLECALCIFEROL (VITAMIN D3) 125 MCG (5,000 UNITS) TABLET PO (08:50)
[2024-10-10] MEDS: CLOPIDOGREL BISULFATE 75 MG TABLET PO (08:50)
[2024-10-10] MEDS: ATORVASTATIN 40 MG TABLET PO (08:50)
[2024-10-10 09:53] LABS: Free T4 Free Thyroxine Reflex 1.26 ng/dL (0.78-2.19)
[2024-10-10 10:46] LABS: Total Triiodothyronine (T3) 1.27 NG/ML (0.82-1.58)
--- NOTE | 2024-10-10 11:44 | WPDNEUROLOGY ---
Neurology EEG Report General Information Date of Study: 10/10/24 TEST EEG DIAGNOSIS Transient memory loss CONDITION OF RECORDING awake drowsy and asleep. EEG NUMBER [id number] CLINICAL HISTORY 69 years old female came to the ER with memory loss. Patient states that she choked on her cough and cough really hard before her left for a walk and that was the last thing she remembers. She states she lost about 20minutes of her day. He remembers her daughter calling her and her daughter stated that she was speaking and answering questions but seemed confused about where her was and talking. This episode has never happened before. EEG DESCRIPTION Basic resting occipital frequency consists of fairly well-organized low voltage 9 to 11 hertz per 2nd alpha admixed with low-voltage 15 to 21 hertz per 2nd beta activity. Low-voltage beta activity seen diffusely admixed with waxing and waning posterior alpha rhythm. Low voltage beta and intermittent theta activity mixed with the alpha activity seen during drowsiness. Bilateral symmetrical sleep spindles are noted during sleep. Photic stimulation not done. Hyperventilation not done. Non paroxysmal. Nonfocal. Nonlateralizing. IMPRESSION Normal record. Clinical correlation commended as normal EEG does not rule out seizure disorder.
--- NOTE | 2024-10-10 11:54 | WPDNEURCNPN ---
Assessment and Plan Assessment and plan (1) Altered awareness, transient: Code(s): R40.4 - Transient alteration of awareness Status: Acute (2) Takotsubo cardiomyopathy: Code(s): I51.81 - Takotsubo syndrome Status: Acute Plan 1. Episode of confusion raising the possibility of unwitnessed seizure, or TIA, or ongoing early dementia though unlikely, considering the MRI report could be on the basis of small-vessel disease as patient has been documented to have lacunar infarct but obviously there is no major abnormalities. CTA is negative will recommend continue aspirin 81mg daily cholesterol-lowering medication and follow-up in the office. An EEG can be obtained as an outpatient. Obviously she will need a cardiology consultation. Consult date: 10/10/24 HPI: Stephanie Sanchez is a 69 year old female Admitted to the hospital through the emergency room for the complaints of confusion reportedly she was sitting at, when she lost a chunk of time, was unsure what happened after her left. When he got back ,she apparently had a weak voice, slight headache though by the time she came to the ER symptomatology had resolved she gave no history of any other associated generalized symptomatology. She has been taking multiple medications particularly levothyroxine 112mcg tablet daily, levothyroxine 5mcg tablet daily, estradiol 2mg daily, and testosterone gel packet, she has history of multiple allergies as listed particularly codeine morphine oxycodone meperidine. On initial exam in the emergency room her general physical exam was normal. As per the information available she has the history of benign paroxysmal positional vertigo of left ear in addition to the history of herpes zoster without complications and she has history of 15 years smoked, smoking pack years 15 but at present former smoker, she is currently alcohol intake 5 drinks per week, on initial exam in the emergency room her gross neurological examination was nonfocal. vital signs were normal with blood pressure 173/93 which came down to normal, CBC was normal, BMP was normal, and the master scan was normal, CT scan of the head revealed no evidence of any bleed or ventriculomegaly which she had moderate possibly acute sinusitis. Her CTA was also negative for aneurysm or any vascular stenosis. Echocardiogram has revealed moderate enlargement of the left ventricle, with reduced systolic function, and severely hypokinetic apical segments suggestive of cardiomyopathy. her EEG has already been done and is normal. Review of Systems Review of Systems: All systems reviewed & are unremarkable except as noted in HPI and below PMFSH Past Medical History Medical History (Updated 10/10/24 @ 13:17 by Faiza Tyler APRN) Hypothyroidism Palpitations Left foot pain Herpes zoster without complication Dorsalgia Diarrhea Closed nondisplaced fracture of fifth metatarsal bone of left foot Closed fracture of base of fifth metatarsal bone of left foot Cervicalgia Benign paroxysmal positional vertigo of left ear Colitis Family History Family History Sibling Diabetes mellitus Mother Hypertension Family history of Alzheimer's disease, Onset Age: 85 Patient's mother is , Onset Age: 85 Father Family history of lung cancer, Onset Age: 78 Family history of malignant neoplasm of urinary bladder, Onset Age: 78 Patient's father is , Onset Age: 78 Other Family history of arthritis Family history of cardiovascular disease Family history of malignant neoplasm of breast Family history of malignant neoplasm of male breast Social History Social History Smoking packs per day: 1 Smoking cigarettes per day: 20.0 Years smoked: 15 Smoking pack-years: 15.00 Smoking status: Former smoker Second hand tobacco smoke exposure: No Alcohol intake: current Drinks per week: 5 Substance use: never Substance use type: does not use Do You Feel Safe in your Home?: Yes Lack of Transportation: No Lack of Food: Never True Current Housing: I Have Housing Concerned About Future Housing: No Difficulty Paying Gas/Electric Bills: No Difficulty Paying for Meds: No Currently Unemployed: No Education: Decline to Answer Difficulty w/ Childcare or Family Care: No Living arrangements: with family Occupation/Education: retired Gender identity (if verbalized by the patient): Female Spiritual care concerns: No Meds Home Medications and Allergies Home Medications ?Medication ?Instructions ?Recorded ?Confirmed ?Type progesterone micronized 200 mg 400 mg PO DAILY 05/26/21 10/09/24 History capsule cholecalciferol (vitamin D3) 125 125 mcg PO DAILY 06/18/21 10/09/24 History mcg (5,000 unit) tablet (Vitamin D3) testosterone 1 % (50 mg/5 gram) 1 packet transdermal DAILY 09/28/21 10/09/24 History transdermal gel packet estradiol 2 mg tablet 2 mg PO DAILY 11/21/24 08/26/25 History omeprazole 20 mg capsule,delayed 20 mg PO DAILY PRN Indigestion #90 08/20/24 10/09/24 Rx release caps levothyroxine 112 mcg tablet 112 mcg PO DAILY@62910/09/24 10/09/24 History liothyronine 5 mcg tablet 5 mcg PO DAILY@30 10/09/24 10/09/24 History Allergies Allergy/AdvReac Type Severity Reaction Status Date / Time codeine Allergy Unknown Vomiting Verified 10/09/24 16:02 meperidine Allergy Unknown Vomiting Verified 10/09/24 16:02 morphine Allergy Unknown Vomiting Verified 10/09/24 16:02 oxycodone Allergy Unknown Vomiting Verified 10/09/24 16:02 NARCOTICS AdvReac Intermediate N&V, Uncoded 10/09/24 16:02 MIGRAINES Vital Signs Vital Signs - 24 hr 10/09/24 15:11 10/09/24 16:05 10/09/24 18:00 Temperature 36.7 C 36.6 C Pulse Rate 89 83 83 Respiratory Rate 15 14 Blood Pressure 141/86 H 115/69 Pulse Oximetry 99 98 Oxygen Delivery 10/09/24 20:00 10/09/24 20:00 10/09/24 21:18 Temperature 36.4 C L Pulse Rate 83 83 83 Respiratory Rate 14 16 Blood Pressure 116/75 Pulse Oximetry 98 92 Oxygen Delivery Room Air 10/10/24 00:00 10/10/24 01:42 10/10/24 04:00 Temperature 36.4 C L Pulse Rate 76 98 76 Respiratory Rate 16 Blood Pressure 111/52 L Pulse Oximetry 100 Oxygen Delivery 10/10/24 06:00 10/10/24 08:51 10/10/24 10:00 Temperature 36.4 C 36.6 C Pulse Rate 86 91 Respiratory Rate 16 18 Blood Pressure 122/70 119/68 Pulse Oximetry 98 98 Oxygen Delivery Room Air Exam Narrative: Examination revealed her to be awake alert cooperative in no obvious acute distress, his speech not dysphasic not dysarthric not dysphonic, aware of being in the hospital at the bedside, head normocephalic with no cranial bruit, ear nose throat examination normal, neck supple with no cervical bruit no thyromegaly no lymphadenopathy, heart regular with no murmur, lungs clear with no rhonchi or crepitation, abdomen is soft nontender normal bowel sounds, neurologically she is awake alert oriented x4, his speech not dysphasic not dysarthric not dysphonic, pupils round regular reacting to light equally, feels the vision full in all 4 quadrants, extraocular movements full with no nystagmus, facial sensation intact, symmetrical able to perceive soft sound bilaterally, tongue in the midline, fasciculation of the tongue, motor examination revealed her to have normal strength and tone in upper and lower extremities bilaterally no evidence of increase tone or abnormal strength on 1 side or other side, plantar responses are downgoing, deep tendon reflexes are symmetrical but sluggish, there is no evidence of ataxia or dysmetria bilaterally, Results Labs 10/10/24 05:50 10/10/24 05:50 Labs: Short CBC 10/10/24 Range/Units 05:50 WBC 4.7 (4.5-10.0) K/mm3 Hgb 14.0 (12.0-15.0) g/dL Hct 43.0 (37.0-47.0) % Plt Count 245 (150-375) k/mm3 BMP 10/10/24 05:50 Sodium 138 Potassium 4.8 Chloride 104 Carbon Dioxide 28 BUN 15 Creatinine 0.80 Glucose 87 Calcium 8.9 Liver Function 10/10/24 Range/Units 05:50 Total Bilirubin 0.4 (0.2-1.3) mg/dL AST 34 (14-36) U/L ALT 21 (6-35) U/L Alkaline Phosphatase 49 (38-126) U/L Albumin 4.1 (3.5-5.1) g/dL
--- NOTE | 2024-10-10 12:36 | P.CONCA_ITS ---
Assessment and Plan Assessment and plan (1) Takotsubo cardiomyopathy: Code(s): I51.81 - Takotsubo syndrome Status: Acute Assessment and Plan: Echocardiogram showed EF 25-30% with hypokinesis of the mid apical segments suggesting a takotsubo cardiomyopathy. She has no signs or symptoms of decompensated heart failure. * Will start guideline directed medical therapy with Entresto 12-13 mg b.i.d. and Toprol XL 12.5 mg daily * Keep NPO for possible left heart catheterization tomorrow with . Co-will discuss with him * Life vest at discharge * Will repeat echocardiogram as an outpatient in 6-8 weeks to reassess her LV function * Most likely will be able to discharge home tomorrow History of Present Illness History of Present Illness Consult date/time: 10/10/24 12:36 Requesting physician: Faiza Tyler APRN Consult reason: Other (Takotsubo CMY) Reason For Visit: tia Narrative: Stephanie Sanchez is a 69-year-old female with hypothyroidism but no other significant past medical history. She comes to the hospital following an episode where she experienced choking, coughing, numbness in both upper arms, and. Of either loss of consciousness or memory loss of about 20 minutes. Cardiology is consulted because of echocardiographic findings of LV dysfunction. Patient denies any history of swelling, shortness of breath, chest pain, palpitations. Prior to the event described above yesterday she had been in her usual state of health though she does note that she had some symptoms of an upper respiratory illness at the end of last week but was feeling better. She has been seen by Neurology and did have a tiny infarct in the left parietal lobe. She has not have any residual symptoms, no complaints at the time my visit is resting comfortably in bed. Review of Systems 2 Review of Systems: All systems reviewed & are unremarkable except as noted in HPI and below PMFSH Past Medical History Medical History Hypothyroidism Palpitations Left foot pain Herpes zoster without complication Dorsalgia Diarrhea Closed nondisplaced fracture of fifth metatarsal bone of left foot Closed fracture of base of fifth metatarsal bone of left foot Cervicalgia Benign paroxysmal positional vertigo of left ear Colitis Family History Family History Sibling Diabetes mellitus Mother Hypertension Family history of Alzheimer's disease, Onset Age: 85 Patient's mother is , Onset Age: 85 Father Family history of lung cancer, Onset Age: 78 Family history of malignant neoplasm of urinary bladder, Onset Age: 78 Patient's father is , Onset Age: 78 Other Family history of arthritis Family history of cardiovascular disease Family history of malignant neoplasm of breast Family history of malignant neoplasm of male breast Social History Social History Smoking packs per day: 1 Smoking cigarettes per day: 20.0 Years smoked: 15 Smoking pack-years: 15.00 Smoking status: Former smoker Second hand tobacco smoke exposure: No Alcohol intake: current Drinks per week: 5 Substance use: never Substance use type: does not use Do You Feel Safe in your Home?: Yes Lack of Transportation: No Lack of Food: Never True Current Housing: I Have Housing Concerned About Future Housing: No Difficulty Paying Gas/Electric Bills: No Difficulty Paying for Meds: No Currently Unemployed: No Education: Decline to Answer Difficulty w/ Childcare or Family Care: No Living arrangements: with family Occupation/Education: retired Gender identity (if verbalized by the patient): Female Spiritual care concerns: No Meds Home Medications and Allergies Home Medications ?Medication ?Instructions ?Recorded ?Confirmed ?Type progesterone micronized 200 mg 400 mg PO DAILY 2 10/09/24 History capsule cholecalciferol (vitamin D3) 125 125 mcg PO DAILY 07/0510/09/24 History mcg (5,000 unit) tablet (Vitamin D3) testosterone 1 % (50 mg/5 gram) 1 packet transdermal D AILY 09/28/21 10/09/24 History transdermal gel packet estradiol 2 mg tablet 2 mg PO DAILY 01/05/2410/09 History omeprazole 20 mg capsule,delayed 20 mg PO DAILY PRN In digestion #90 08/20/24 10/09/24 Rx release caps levothyroxine 112 mcg tablet 112 mcg PO DAILY@62910/09/24 History liothyronine 5 mcg tablet 5 mcg PO DAILY@62910/09/24 10/09/24 History Allergies Allergy/AdvReac Type Severity Reaction Status Date / Time codeine Allergy Unknown Vomiting Verified 10/09/24 16:02 meperidine Allergy Unknown Vomiting Verified 10/09/24 16:02 morphine Allergy Unknown Vomiting Verified 10/09/24 16:02 oxycodone Allergy Unknown Vomiting Verified 10/09/24 16:02 NARCOTICS AdvReac Intermediate N&V, Uncoded 10/09/24 16:02 MIGRAINES Vital Signs Vital Signs - 24 hr 10/09/24 15:11 10/09/24 16:05 10/09/24 18:00 Temperature 36.7 C 36.6 C Pulse Rate 89 83 83 Respiratory Rate 15 14 Blood Pressure 141/86 H 115/69 Pulse Oximetry 99 98 Oxygen Delivery 10/09/24 20:00 10/09/24 20:00 10/09/24 21:18 Temperature 36.4 C L Pulse Rate 83 83 83 Respiratory Rate 14 16 Blood Pressure 116/75 Pulse Oximetry 98 92 Oxygen Delivery Room Air 10/10/24 00:00 10/10/24 01:42 10/10/24 04:00 Temperature 36.4 C L Pulse Rate 76 98 76 Respiratory Rate 16 Blood Pressure 111/52 L Pulse Oximetry 100 Oxygen Delivery 10/10/24 06:00 10/10/24 08:51 10/10/24 10:00 Temperature 36.4 C 36.6 C Pulse Rate 86 91 Respiratory Rate 16 18 Blood Pressure 122/70 119/68 Pulse Oximetry 98 98 Oxygen Delivery Room Air Exam 2 Const: General: comfortable, no acute distress, alert and awake O rientation/consciousness: patient oriented x3 HENMT: Head: normal to inspection Eyes: General: appearance normal, both eyes and all related structures P upils: Equal, round and reactive pupils present Neck: Neck: normal visual inspection, supple and no JVD Carotids: normal carotid upstroke Resp: Effort & Inspection: normal respiratory effort Auscultation: clear to auscultation bilaterally Cardio: Rate: regular rate Rhythm: regular rhythm Heart sounds: S1 normal heart sound present, S2 normal heart sound present and no murmurs GI: Auscultation: normal bowel sounds Skin: General skin exam: normal color Neuro: General: patient oriented x3 Cranial nerves: Yes Equal, round and reactive pupils present Extrem: General: normal to inspection Psych: Appearance: grossly normal Mental Status: mental status grossly normal Results Labs and Meds 10/10/24 05:50 10/10/24 05:50 Lab results: Cardiac Enzymes 10/10/24 Range/Units 05:50 AST 34 (14-36) U/L Lipids 10/10/24 Range/Units 05:50 Triglycerides 108 (<150) mg/dL Cholesterol 183 (0-200) mg/dL CBC 10/10/24 Range/Units 05:50 WBC 4.7 (4.5-10.0) K/mm3 RBC 4.70 (4.2-5.4) M/mm3 Hgb 14.0 (12.0-15.0) g/dL Hct 43.0 (37.0-47.0) % Plt Count 245 (150-375) k/mm3 Lymph # (Auto) 1.71 (0.9-3.2) K/mm3 [place] # (Auto) 0.5 (0.1-0.6) K/mm3 Eos # (Auto) 0.3 (0-0.3) K/mm3 Baso # (Auto) 0.1 (0.0-0.1) K/mm3 Comprehensive Metabolic Panel 10/10/24 Range/Units 05:50 Sodium 138 (137-145) mmol/L Potassium 4.8 (3.4-5.0) mmol/L Chloride 104 (98-107) mmol/L Carbon Dioxide 28 (22-30) mmol/L BUN 15 (7-17) mg/dL Creatinine 0.80 (0.7-1.0) mg/dL Glucose 87 (65-110) mg/dL Calcium 8.9 (8.4-10.2) mg/dL AST 34 (14-36) U/L ALT 21 (6-35) U/L Alkaline Phosphatase 49 (38-126) U/L Total Protein 7.2 (6.3-8.2) g/dL Albumin 4.1 (3.5-5.1) g/dL Intake and Output 10/09/24 10/10/24 10/10/24 23:59 07:59 15:59 Intake Total 340 300 240 Balance 340 300 240 Intake: Oral 340 300 240 Other: # Unmeasured Voids 2
--- NOTE | 2024-10-10 13:13 | P.PNIM_ITS ---
Progress Note: A&P Assessment and Plan (1) CVA (cerebral vascular accident): Code(s): I63.9 - Cerebral infarction, unspecified Status: Acute Assessment and Plan: New memory loss that occurred on 10/09 that was followed by a mild headache and voice hoarseness. Episode lasted for approximately 20 minutes. Memory loss was transient. No prior history of CVA or TIA however MRI is showing small old lacunar infarct. MRI today showing tiny acute infarct in the posterior medial left temporal lobe. EEG with no significant findings * school lunch monitor and telemetry continuously. * Blood pressure management. -Keep the systolic blood pressure more than 200 or diastolic more than 110. Then lower blood pressure by 15% within the 1st 24 hours. * Neurology consulted * Check for LDL and hemoglobin A1c. * Add statins 40 mg q.day, aspirin 81 mg g q.day/Plavix * Will likely need a heart monitor outpatient * Echocardiogram with no shunting however incidental finding systolic dysfunction with reduced ejection fraction showing possible takotsubo cardiomyopathy (2) Takotsubo cardiomyopathy: Code(s): I51.81 - Takotsubo syndrome Status: Acute Assessment and Plan: Echocardiogram ordered for bubble study after possible TIA versus CVA incidental finding systolic dysfunction with reduced ejection fraction showing possible takotsubo cardiomyopathy. Patient with no previous cardiac history * Cardiology consulted for further evaluation and treatment recommendation * Patient may need a ischemic workup. (3) Hypothyroidism: Qualifiers: Hypothyroidism type: unspecified Qualified Code(s): E03.9 - Hypothyroidism, unspecified Code(s): E03.9 - Hypothyroidism, unspecified Status: Acute Assessment and Plan: * check TSH, last on file in 2020 * continue Synthroid in interim Plan Code status: Full code per patient DVT prophylaxis: SCD Stress ulcer prophylaxis: NA PT/OT notes: Ambulatory Disposition: Patient admitted to the medical unit for evaluation of TIA or CVA with MRI showing acute temporal infarct with incidental finding on echocardiogram for cardiomyopathy cardiology consulted for further evaluation patient with no neurological deficits plan to discharge to home ambulatory on own. Time Spent With Patient Time with patient: 15 - 25 minutes Subjective Date/time seen: 10/10/24 13:13 Interval history: Patient is a 69-year-old female who is admitted for further evaluation treatment episode of memory loss due to unknown origin upon arrival to the emergency department patient's symptoms had resolution and no neurological deficits she is admitted for evaluation for possible CVA. 10/10/2024: Patient reports no further episodes of memory loss, moving all extremities equally. Patient denied CP, SOB, N/V, visual changes or dizziness. Ambulating on own. Review of Systems Review of Systems: All systems reviewed & are unremarkable except as noted in HPI and below Exam Const: General: comfortable and no acute distress Other: , female, elderly, younger appearance than stated age, nontoxic appearance HENMT: Face/Nose/Sinus: Normal nares present Mouth: Yes moist mucous membranes Eyes: General: appearance normal, both eyes and all related structures Sclera: sclerae normal Pupils: Equal, round and reactive pupils present EOM: EOMs intact bilaterally Resp: Effort & Inspection: normal respiratory effort Auscultation: clear to auscultation bilaterally Cardio: Rate: regular rate Rhythm: regular rhythm Other: S1-S2 present without murmur, rub, ectopy GI: Other: Abdomen soft, nondistended, nontender. Normoactive bowel sounds in all quadrants. Skin: General skin exam: normal color and no rashes or lesions noted Wounds: no wounds Neuro: Cranial nerves: Yes Equal, round and reactive pupils present Speech: normal speech Motor exam (neuro): 5/5 motor strength present throughout Sensory Exam: normal sensation Other: A&O x4, NIH 0 Extrem: General: normal to inspection Psych: Mental Status: mental status grossly normal Affect: normal affect Other: Good insight and judgment, very pleasant Objective Data Vital Signs Vital Signs: Vital Signs - 24 hr 10/09/24 15:11 10/09/24 16:05 10/09/24 18:00 Temperature 98.0 F 97.9 F Pulse Rate 89 83 83 Respiratory Rate 15 14 Blood Pressure 141/86 H 115/69 Pulse Oximetry 99 98 Oxygen Delivery 10/09/24 20:00 10/09/24 20:00 10/09/24 21:18 Temperature 97.5 F L Pulse Rate 83 83 83 Respiratory Rate 14 16 Blood Pressure 116/75 Pulse Oximetry 98 92 Oxygen Delivery Room Air 10/10/24 00:00 10/10/24 01:42 10/10/24 04:00 Temperature 97.5 F L Pulse Rate 76 98 76 Respiratory Rate 16 Blood Pressure 111/52 L Pulse Oximetry 100 Oxygen Delivery 10/10/24 06:00 10/10/24 08:05 10/10/24 08:51 Temperature 97.6 F Pulse Rate 86 94 Respiratory Rate 16 Blood Pressure 122/70 Pulse Oximetry 98 Oxygen Delivery Room Air 10/10/24 10:00 Temperature 97.8 F Pulse Rate 91 Respiratory Rate 18 Blood Pressure 119/68 Pulse Oximetry 98 Oxygen Delivery Intake/Output Intake/Output: Intake & Output 10/07/24 10/08/24 10/09/24 10/10/24 23:59 23:59 23:59 23:59 Intake Total 340 540 Balance 340 540 Meds/Results Medications: Active Medications Generic Name Dose Route Start Last Admin Trade Name Freq PRN Reason Stop Dose Admin Acetaminophen 650 mg 10/09/24 15:10 Acetaminophen 325 Mg Tablet PO Q6H PRN Mild Pain (1-3) or Fever Amoxicillin/Clavulanate Potassium 1 tablet 10/10/24 21:00 Amoxicillin/Clavulanate K 875-125 Mg Tab PO Q12HR JORGE A Aspirin 81 mg 10/10/24 09:00 10/10/24 08:50 Aspirin 81 Mg Enteric Tablet PO 81 mg QAM JORGE A Administration Atorvastatin Calcium 40 mg 10/10/24 09:00 10/10/24 08:50 Atorvastatin 40 Mg Tablet PO 40 mg DAILY JORGE A Administration Clopidogrel Bisulfate 75 mg 10/10/24 09:00 10/10/24 08:50 Clopidogrel Bisulfate 75 Mg Tablet PO 75 mg QAM JORGE A Administration Estradiol 2 mg 10/10/24 09:00 10/10/24 08:51 Estradiol 1 Mg Tablet PO 2 mg DAILY JORGE A Administration Levothyroxine Sodium 112 mcg 10/10/24 06:30 10/10/24 06:02 Levothyroxine Sodium 112 Mcg Tablet PO 112 mcg DAILY@0630 JORGE A Administration Liothyronine Sodium 5 mcg 10/10/24 06:30 10/10/24 06:04 Liothyronine Sodium 5 Mcg Tablet PO 5 mcg DAILY@0630 JORGE A Administration Miscellaneous Information 0 each 10/09/24 00:01 Progesterone Non Form Can Pt Bring From Home? XX 11/08/24 00:00 CLARIFY [facility] Miscellaneous Information 0 each 10/09/24 00:01 Testosterone Nonform Can Pt Bring From Home? XX 11/08/24 00:00 CLARIFY [facility] Non-Formulary Medication 400 mg 10/10/24 09:00 Progesterone Micronized PO 11/09/24 08:59 DAILY [facility] Non-Formulary Medication 1 packet 10/10/24 09:00 Testosterone TRANSDERM 11/09/24 08:59 DAILY [facility] Ondansetron HCl 4 mg 10/09/24 15:10 Ondansetron Hcl Odt 4 Mg Tablet PO Q6H PRN Nausea And Vomiting Pantoprazole Sodium 40 mg 10/09/24 22:56 Pantoprazole 40 Mg Tablet PO DAILY PRN Indigestion Perflutren Lipid Microsphere 0 ml 10/09/24 15:07 Perflutren Lipid Microspheres 1.5 Ml Vial Diluted To 10 Ml Total Volume IV PUSH 10/12/24 15:07 ONCE PRN adequate visualization Protocol Polyethylene Glycol 17 gm 10/09/24 15:10 Polyethylene Glycol 3350 17 Gm Powd.Pack PO QAM PRN Constipation Vitamin D 125 mcg 10/10/24 09:00 10/10/24 08:50 Cholecalciferol (Vitamin D3) 125 Mcg (5,000 Units) Tablet PO 125 mcg DAILY JORGE A Administration Radiology Results: ITS Impressions Head CT 10/09/24 12:43 IMPRESSION: 1. No acute intracranial abnormality. 2: Moderate sinusitis, possibly acute. Head/Neck CTA 10/09/24 13:54 IMPRESSION: 1. No evident atherosclerotic plaque with 0% stenosis of the right carotid bulb relative to normal distal artery lumen diameter (NASCET criteria). 2. Unremarkable cerebral CT angiogram with no evident thrombosis, hemodyn amically significant stenosis or aneurysm. Brain MRI 10/10/24 12:40 IMPRESSION: 1. Tiny acute infarct in the posterior medial left temporal lobe. 2. Chronic age-related changes the brain as well as a couple small old lacunar infarcts in the left frontal lobe centrum semiovale and anterior limb of the left internal capsule. 3. Sinus disease with fluid in the left frontal, left maxillary and right sphenoid sinuses consistent with acute sinusitis. Labs Labs: Laboratory Results - last 24 hr 10/10/24 05:50 WBC 4.7 RBC 4.70 Hgb 14.0 Hct 43.0 MCV 91.5 MCH 29.8 MCHC 32.6 RDW 11.9 Plt Count 245 MPV 9.8 Immature Gran % (Auto) 0.2 Neut % (Auto) 46.4 Lymph % (Auto) 36.5 Cass % (Auto) 9.8 H Eos % (Auto) 6.0 H Baso % (Auto) 1.1 Lymph # (Auto) 1.71 Cass # (Auto) 0.5 Eos # (Auto) 0.3 Baso # (Auto) 0.1 Abs Immat Gran (auto) 0.01 Absolute Neuts (auto) 2.2 Absolute Nucleated RBC 0.000 Nucleated RBC % 0.0 Sodium 138 Potassium 4.8 Chloride 104 Carbon Dioxide 28 Anion Gap 6 BUN 15 Creatinine 0.80 Estim Creat Clear Calc 51 Estimated GFR > 60 Glucose 87 Hemoglobin A1c 5.2 Calcium 8.9 Total Bilirubin 0.4 AST 34 ALT 21 Alkaline Phosphatase 49 Total Protein 7.2 Albumin 4.1 Triglycerides 108 Cholesterol 183 LDL Cholesterol Direct 100 HDL Direct 37 TSH (Reflex) < 0.015 L Free T4 1.26 Total T3 1.27 Quality VTE Prophylaxis VTE prophylaxis: mechanical ordered -Patient's previous records reviewed on admission -ER notes reviewed in detail on admission -discussed all findings and current treatment plan with patient/Family/POA -Consultations reviewed for recommendations -Patient's disposition for safe discharge discussed with vocational case manager Dictation performed by [employer] direct speech recognition software, therefore planting machine operator variants and typographical errors may occur. Hospitalist [facility] Advance Care Plan I have confirmed that the patient's Advanced Care Plan is present, code status is documented, or surrogate decision maker is listed in patient medical record.: Yes Medication Reconciliation I have utilized all available resources to obtain, update and review the patients current medications (includes all prescriptions, OTC, herbals, cannabis, and nutritional supplements).: Yes The patient is not eligible for med reconciliation; the patient is in a emergent medical situation where delaying treatment would jeopardize the patients health.: No
--- NOTE | 2024-10-10 19:59 | PC.NURSE ---
Logger All Round came on shift at 1900 Pt HR at time was tachycardiac with rate soike to 150. patient was getting fitted for life vest at the time. Logger [employer] Round reached out to Hospitalist to make aware. HR currently in 80's. Pt is on telemetry and fiction and nonfiction writer prose will continue to monitor
[2024-10-10] MEDS: SACUBITRIL/VALSARTAN 12-13 MG TABLET 1 TAB PO (21:16)
[2024-10-10] MEDS: MELATONIN 3 MG TABLET PO (23:01)
[2024-10-11] VITALS (8 sets, daily range): BP systolic 100–121; BP diastolic 48–78; PULSE 76–102; RESP 18; TEMP 36.6–36.7; O2SAT 99
[2024-10-11] MEDS: LEVOTHYROXINE SODIUM 112 MCG TABLET PO (05:31)
[2024-10-11] MEDS: LIOTHYRONINE SODIUM 5 MCG TABLET PO (05:31)
[2024-10-11] MEDS: SACUBITRIL/VALSARTAN 12-13 MG TABLET 1 TAB PO (08:51)
[2024-10-11] MEDS: METOPROLOL SUCCINATE EXT REL 12.5 MG TABCR PO (08:51)
[2024-10-11] MEDS: ATORVASTATIN 40 MG TABLET PO (08:51)
[2024-10-11] MEDS: CHOLECALCIFEROL (VITAMIN D3) 125 MCG (5,000 UNITS) TABLET PO (08:51)
--- NOTE | 2024-10-11 09:07 | P.PNCA_ITS ---
Progress Note: A&P Assessment and Plan (1) Takotsubo cardiomyopathy: Code(s): I51.81 - Takotsubo syndrome Status: Acute Assessment and Plan: Echocardiogram showed EF 25-30% with hypokinesis of the mid apical segments suggesting a takotsubo cardiomyopathy. She has no signs or symptoms of decompensated heart failure. * Continue GDMT with Entresto 12-13 mg b.i.d. and Toprol XL 12.5 mg daily. Will up titrate/optimize medical therapy as an outpatient * No need for inpatient ischemic evaluation per Dr. Castaneda - case discussed with him * Life vest has been delivered * Will repeat echocardiogram as an outpatient in 6-8 weeks to reassess her LV function * Okay for discharge home today Subjective Date/time seen: 10/11/24 09:07 Interval history: Cardiology follow-up visit Date of service 10/11/2024: Patient is feeling well this morning and has no complaints of any kind. Review of Systems Review of Systems: All systems reviewed & are unremarkable except as noted in HPI and below Exam Const: General: comfortable, no acute distress, alert and awake Orientation/consciousness: patient oriented x3 HENMT: Head: normal to inspection Eyes: General: appearance normal, both eyes and all related structures Pupils: Equal, round and reactive pupils present Neck: Neck: normal visual inspection, supple and no JVD Carotids: normal carotid upstroke Resp: Effort & Inspection: normal respiratory effort Auscultation: clear to auscultation bilaterally Cardio: Rate: regular rate Rhythm: regular rhythm Heart sounds: S1 normal heart sound present, S2 normal heart sound present and no murmurs GI: Auscultation: normal bowel sounds Skin: General skin exam: normal color Neuro: General: patient oriented x3 Cranial nerves: Yes Equal, round and reactive pupils present Extrem: General: normal to inspection Psych: Appearance: grossly normal Mental Status: mental status grossly normal Objective Data Vital Signs Vital Signs: Vital Signs - 24 hr 10/10/24 10:00 10/10/24 12:06 10/10/24 13:52 Temperature 36.6 C 36.7 C Pulse Rate 91 104 H 97 Respiratory Rate 18 18 Blood Pressure 119/68 130/74 Pulse Oximetry 98 98 Oxygen Delivery 10/10/24 16:05 10/10/24 19:03 10/10/24 19:15 Temperature Pulse Rate 89 151 H 136 H Respiratory Rate Blood Pressure Pulse Oximetry Oxygen Delivery 10/10/24 19:58 10/10/24 20:00 10/10/24 20:00 Temperature Pulse Rate 82 99 Respiratory Rate Blood Pressure Pulse Oximetry Oxygen Delivery Room Air 10/10/24 21:55 10/10/24 22:00 10/11/24 00:00 Temperature 36.1 C L Pulse Rate 78 76 Respiratory Rate 16 Blood Pressure 115/69 Pulse Oximetry 98 99 Oxygen Delivery Autopap 10/11/24 04:00 10/11/24 04:26 10/11/24 08:51 Temperature 36.6 C Pulse Rate 76 76 102 H Respiratory Rate 18 Blood Pressure 100/48 L Pulse Oximetry 99 Oxygen Delivery Intake/Output Intake/Output: Intake & Output 10/08/24 10/09/24 10/10/24 10/11/24 23:59 23:59 23:59 23:59 Intake Total 340 1380 400 Balance 340 1380 400 Meds/Results Medications: Active Medications Generic Name Dose Route Start Last Admin Trade Name Freq PRN Reason Stop Dose Admin Acetaminophen 650 mg 10/09/24 15:10 Acetaminophen 325 Mg Tablet PO Q6H PRN Mild Pain (1-3) or Fever Amoxicillin/Clavulanate Potassium 1 tablet 10/10/24 21:00 10/10/24 21:16 Amoxicillin/Clavulanate K 875-125 Mg Tab PO 1 tablet Q12HR JORGE A Administration Aspirin 81 mg 10/10/24 09:00 10/10/24 08:50 Aspirin 81 Mg Enteric Tablet PO 81 mg QAM JORGE A Administration Atorvastatin Calcium 40 mg 10/10/24 09:00 10/11/24 08:51 Atorvastatin 40 Mg Tablet PO 40 mg DAILY JORGE A Administration Clopidogrel Bisulfate 75 mg 10/10/24 09:00 10/10/24 08:50 Clopidogrel Bisulfate 75 Mg Tablet PO 75 mg QAM JORGE A Administration Estradiol 2 mg 10/10/24 09:00 10/11/24 08:51 Estradiol 1 Mg Tablet PO 2 mg DAILY JORGE A Administration Levothyroxine Sodium 112 mcg 10/10/24 06:30 10/11/24 05:31 Levothyroxine Sodium 112 Mcg Tablet PO 112 mcg DAILY@0630 JORGE A Administration Liothyronine Sodium 5 mcg 10/10/24 06:30 10/11/24 05:31 Liothyronine Sodium 5 Mcg Tablet PO 5 mcg DAILY@0630 JORGE A Administration Melatonin 3 mg 10/10/24 21:00 10/10/24 23:01 Melatonin 3 Mg Tablet PO 3 mg HS JORGE A Administration Metoprolol Succinate 12.5 mg 10/11/24 09:00 10/11/24 08:51 Metoprolol Succinate Ext Rel 12.5 Mg Tabcr PO 12.5 mg QAM JORGE A Administration Miscellaneous Information 0 each 10/09/24 00:01 Progesterone Non Form Can Pt Bring From Home? XX 11/08/24 00:00 CLARIFY JORGE A Miscellaneous Information 0 each 10/09/24 00:01 Testosterone Nonform Can Pt Bring From Home? XX 11/08/24 00:00 [facility]IFY [facility] Non-Formulary Medication 400 mg 10/10/24 09:00 Progesterone Micronized PO 11/09/24 08:59 DAILY JORGE A Non-Formulary Medication 1 packet 10/10/24 09:00 Testosterone TRANSDERM 11/09/24 08:59 DAILY JORGE A Ondansetron HCl 4 mg 10/09/24 15:10 Ondansetron Hcl Odt 4 Mg Tablet PO Q6H PRN Nausea And Vomiting Pantoprazole Sodium 40 mg 10/09/24 22:56 Pantoprazole 40 Mg Tablet PO DAILY PRN Indigestion Perflutren Lipid Microsphere 0 ml 10/09/24 15:07 Perflutren Lipid Microspheres 1.5 Ml Vial Diluted To 10 Ml Total Volume IV PUSH 10/12/24 15:07 ONCE PRN adequate visualization Protocol Polyethylene Glycol 17 gm 10/09/24 15:10 Polyethylene Glycol 3350 17 Gm Powd.Pack PO QAM PRN Constipation Sacubitril/Valsartan 1 tab 10/10/24 21:00 10/11/24 08:51 Sacubitril/Valsartan 12-13 Mg Tablet PO 1 tab Q12HR JORGE A Administration Vitamin D 125 mcg 10/10/24 09:00 10/11/24 08:51 Cholecalciferol (Vitamin D3) 125 Mcg (5,000 Units) Tablet PO 125 mcg DAILY JORGE A Administration Radiology Results: ITS Impressions Head CT 10/09/24 12:43 IMPRESSION: 1. No acute intracranial abnormality. 2: Moderate sinusitis, possibly acute. Head/Neck CTA 10/09/24 13:54 IMPRESSION: 1. No evident atherosclerotic plaque with 0% stenosis of the right carotid bulb relative to normal distal artery lumen diameter (NASCET criteria). 2. Unremarkable cerebral CT angiogram with no evident thrombosis, hemodynamically significant stenosis or aneurysm. Brain MRI 10/10/24 12:40 IMPRESSION: 1. Tiny acute infarct in the posterior medial left temporal lobe. 2. Chronic age-related changes the brain as well as a couple small old lacunar infarcts in the left frontal lobe centrum semiovale and anterior limb of the left internal capsule. 3. Sinus disease with fluid in the left frontal, left maxillary and right sphenoid sinuses consistent with acute sinusitis. Labs Labs: Laboratory Results - last 24 hr 10/10/24 05:50 Free T4 1.26 Total T3 1.27 Quality VTE Prophylaxis VTE prophylaxis: mechanical ordered
--- NOTE | 2024-10-11 11:05 | P.DS_ITS ---
DS: Admitting Diagnosis Discharge Date 10/11/2024 Admitting Diagnosis Stroke-like symptoms/ memory loss DS: Discharge Diagnosis Discharge Diagnosis (1) CVA (cerebral vascular accident): Code(s): I63.9 - Cerebral infarction, unspecified Status: Acute (2) Takotsubo cardiomyopathy: Code(s): I51.81 - Takotsubo syndrome Status: Acute (3) Hypothyroidism: Qualifiers: Hypothyroidism type: unspecified Qualified Code(s): E03.9 - Hypothyroidism, unspecified Code(s): E03.9 - Hypothyroidism, unspecified Status: Acute DS: Summary Hospital Course Reason for hospitalization: acute lacunar infarct/ takotsubo cardiomyopathy Hospital Course: Admission Patient was a 69 y/o F with PMH of BPPV and colitis presents here with memory loss. The patient had reportsed that she was sitting down to eat breakfast and her had just left the house when her next recollection was her returning home. She states she choked and then coughed so hard that both her arms went numb. She estimates it was around 20 minutes of time loss. Last known well at 8:30 a.m. She reports she lost a chunk time. Post memory loss her family noted that her voice sounded weaker than usual. She also endorsed a mild headache that she described as posterior and dull. She reports this has resolved - did not take medications for this. She denies any focal weakness, focal numbness, vision changes, persistent voice changes, fever, chills, nausea, vomiting, diarrhea, urinary symptoms, dizziness, chest pain, or shortness of breath. She denies any previous history of CVA or TIA. Patient did have a cold over the weekend, tested multiple times for COVID which was negative. In the ED: No leukocytosis, no anemia, normal coags, no significant electrolyte derangements, renal function within normal limits, UA showed 1+ leuk esterase otherwise unremarkable. Head CT showed no acute intracranial abnormality, moderate sinusitis possibly acute. Head/neck CTA showed no evident atherosclerotic plaque with 0% stenosis of the right carotid bulb, unremarkable cerebral CT angiogram. EKG showed sinus rhythm, possible left general is min, possible right ventricular conduction delay, baseline artifact. Hospital Course: patient was admitted to the medical unit for evaluation memory loss and stroke- like symptoms with a consult to Neurology and MRI. MRI showed small old lacunar infarct and a tiny acute infarct in the posterior medial left temporal lobe. EEG with no significant findings. patient was seen by Neurology who also recommended to continue with patient's 81 mg ASA and atorvastatin 40 mg daily. an echocardiogram was completed that showed no shunting however incidental finding of takotsubo syndrome with Echocardiogram showing EF 25-30% with hypokinesis of the mid apical segments suggesting a takotsubo cardiomyopathy. She had no signs or symptoms of decompensated heart failure. cardiology was consulted for evaluation treatment plan at which time patient was started on 12.5 of Toprol daily and Entresto with plans to continue to up titrate outpatient and follow-up echocardiogram in 6-8 weeks. initially they had planned for possible cardiac catheterization to rule out any ischemia but deferred at this time a life vest was ordered and delivered with instructions on use. Patient seen and assessed at time discharge no chest pain, no shortness a breath, no dizziness asymptomatic with no new complaints in no further memory loss. Patient was instructed to follow up with her primary care physician, Neurology and Cardiology outpatient as indicated Status at Discharge Functional status at discharge: independent ambulation Time Spent with Patient Time attestation: Total time spent providing and/or coordinating discharge services: Time spent: Greater than 30 minutes Exam Const: General: comfortable and no acute distress Other: , female, elderly, younger appearance than stated age, nontoxic appear ance HENMT: Face/Nose/Sinus: Normal nares present Mouth: Yes moist mucous membranes Eyes: General: appearance normal, both eyes and all related structures Sclera: sclerae normal Pupils: Equal, round and reactive pupils present EOM: EOMs intact bilaterally Resp: Effort & Inspection: normal respiratory effort Auscultation: clear to auscultation bilaterally Cardio: Rate: regular rate Rhythm: regular rhythm Other: S1-S2 present without murmur, rub, ectopy GI: Other: Abdomen soft, nondistended, nontender. Normoactive bowel sounds in all quadrants. Skin: General skin exam: normal color and no rashes or lesions noted Wounds: no wounds Neuro: Cranial nerves: Yes Equal, round and reactive pupils present Speech: normal speech Motor exam (neuro): 5/5 motor strength present throughout Sensory Exam: normal sensation Other: A&O x4, NIH 0 Extrem: General: normal to inspection Psych: Mental Status: mental status grossly normal Affect: normal affect Other: Good insight and judgment, very pleasant DS: Data Imaging Radiologist's impression: Radiology Results: ITS Impressions Head CT 10/09/24 12:43 IMPRESSION: 1. No acute intracranial abnormality. 2: Moderate sinusitis, possibly acute. Head/Neck CTA 10/09/24 13:54 IMPRESSION: 1. No evident atherosclerotic plaque with 0% stenosis of the right carotid bulb relative to normal distal artery lumen diameter (NASCET criteria). 2. Unremarkable cerebral CT angiogram with no evident thrombosis, hemodynamically significant stenosis or aneurysm. Brain MRI 10/10/24 12:40 IMPRESSION: 1. Tiny acute infarct in the posterior medial left temporal lobe. 2. Chronic age-related changes the brain as well as a couple small old lacunar infarcts in the left frontal lobe centrum semiovale and anterior limb of the left internal capsule. 3. Sinus disease with fluid in the left frontal, left maxillary and right sphenoid sinuses consistent with acute sinusitis. Discharge Plan Discharge Attending physician on discharge: Surinder Enciso Consulting providers: Jair Mulligan; Faiza Tyler; Stefani Grande Discharging Clinician: Faiza Tyler Anticipated Discharge Date/Time: 10/11/24 10:45 Patient Disposition: Home Activity: as tolerated and other - see discharge instructions Diet: heart healthy Discharge Instructions: 1). Takotsubo cardiomyopathy * Continue GDMT with Entresto 12-13 mg b.i.d. and Toprol XL 12.5 mg daily. Cardiology will uptitrate/optimize medical therapy as an outpatient * Life vest information attached remove when showering * Will repeat echocardiogram as an outpatient in 6-8 weeks to reassess 2). Stroke * Atorvastatin 40 mg q.day, aspirin 81 mg g q.day * follow-up with neurology outpatient 3). Sinusitis * I have prescribed oral Augmentin please take as indicated incomplete therapy even if feeling better How can you care for yourself at home? ? Keep track of any new symptoms or changes in your symptoms. ? Rest until you feel better. ? Be safe with medicines. Take your medicines exactly as prescribed. Call your doctor if you think you are having a problem with your medicine. ? Do not drive after taking a prescription pain medicine. ? Ensure to follow-up with primary care physician as indicated and provide updated medication list provided to you at discharge. When should you call for help? Call 911 anytime you think you may need emergency care. For example, call if: ? You passed out (lost consciousness). Call your doctor now or seek immediate medical care if: ? You have new symptoms like fever, difficulty breathing, Chest pain, vomiting, or rash. ? You have new or different pain. ? You are confused and are having trouble thinking clearly. ? Your symptoms are getting worse. Watch closely for changes in your health, and be sure to contact your doctor if: ? You do not get better as expected. Patient Instructions: Antibiotic Form, Metoprolol (By mouth), Sacubitril/Valsartan (By mouth), Dilated Cardiomyopathy (DC), Sinusitis (GEN), Ischemic Stroke (DC) Patient Language: Bol[place]ian Stand Alone Forms: General Discharge Information Follow-up/Referrals: Stefani Grande APN-C [Advanced Practice Nurse, Cardiology] - Call for Appointment Jair Mulligan MD [Physician, Neurology] - Call for Appointment Julián Cruz DO [Primary Care Provider, Internal Medicine] - 2 Weeks Discharge Medications: New amoxicillin-pot clavulanate 875-125 mg tablet 1 tablet PO Q12H Qty: 12 0RF atorvastatin 40 mg Tablet 40 mg PO DAILY Qty: 30 0RF aspirin 81 mg Tablet,Delayed Release (Dr/Ec) 81 mg PO QAM Qty: 30 0RF metoprolol succinate [Toprol XL] 25 mg tablet extended release 24 hr 12.5 mg PO DAILY Qty: 30 0RF sacubitril-valsartan [Entresto] 24-26 mg Tablet 0.5 tab PO Q12HR Qty: 30 0RF Continued progesterone micronized 200 mg capsule 400 mg PO DAILY testosterone 1 % (50 mg/5 gram) gel in packet 1 packet transdermal DAILY Patient Comments: 45 mg cream estradiol 2 mg tablet 2 mg PO DAILY cholecalciferol (vitamin D3) [Vitamin D3] 125 mcg (5,000 unit) Tablet 125 mcg PO DAILY liothyronine 5 mcg tablet 5 mcg PO DAILY@0630 levothyroxine 112 mcg tablet 112 mcg PO DAILY@0630 omeprazole 20 mg capsule,delayed release(DR/EC) 20 mg PO DAILY PRN (Reason: Indigestion) Qty: 90 3RF Other Ambulatory Orders: Basic Metabolic Panel (Routine) Timeframe: 1 Week Location: Determined by Patient Ordered By: Stefani Grande Date of admission: 10/10/24 15:57 Primary Care Provider: Julián Cruz Admitting Provider: Harika Villegas Attending physician on admission: Harika Villegas Condition: Stable Quality VTE Prophylaxis VTE prophylaxis: mechanical ordered -Patient's previous records reviewed on admission -ER notes reviewed in detail on admission -discussed all findings and current treatment plan with patient/Family/POA -Consultations reviewed for recommendations -Patient's disposition for safe discharge discussed with watch case polisher Dictation performed by [employer] direct speech recognition software, therefore railroad firer variants and typographical errors may occur. Hospitalist MIPS Heart Failure (Exclusion) Patient has history of Heart Transplant or Left Ventricular Assistive Device?: No IF YES, STOP HERE Heart Failure (Qualifier) Patient has current or prior documentation of LVEF less than or equal to 40%, or mod/servere depressed LVSF?: Yes IF NO, STOP HERE If Yes, Heart Failure (Qualifier) Patient was prescribed or already taking an Angiotensin-Converting Enzyme (DIRK) Inhibitor, or Antiotensin Receptor Blanca (ARB): Yes Patient was prescribed or already taking bisoprolol, carvedilol, or sustained release metoprolol succinate: Yes
[2024-10-11] MEDS: CLOPIDOGREL BISULFATE 75 MG TABLET PO (11:49)
[2024-10-11] MEDS: ASPIRIN 81 MG ENTERIC TABLET PO (11:49)
== END 2024-10-11 14:20 | disposition home or self-care (01) | DRG 65 ==
LOC: ANHED 10:45 → ANH3MED 15:01
PROVIDERS: Student in an Organized Health Care Education/Training Program; Admitting Provider Internal Medicine; Emergency Provider Student in an Organized Health Care Education/Training Program; PCP Internal Medicine; Visit Provider Internal Medicine
DX: I63.9 Cerebral infarction, unspecified (principal); I51.81 Takotsubo syndrome; R41.3 Other amnesia; E03.9 Hypothyroidism, unspecified; R29.700 NIHSS score 0; Z87.891 Personal history of nicotine dependence
CPT/HCPCS: 36415; 70450; 70496; 70498; 70553; 80053; 80061; 81001; 82948; 83036; 84439; 84443; 84480; 85025; 85610; 85730; 87086; 93005; 93306; 95816; 96374; 96375; 99285; A9270; A9577; G0378; Q9967

== ENCOUNTER 2025-01-21 10:33 | Outpatient (CLI) | payer MEDICARE, SELFPAY ==
--- NOTE | ~2025-01-21 | MM_ITS ---
EXAMINATION: MM screening tu BI w lamberto HISTORY: Screening. TECHNIQUE: Craniocaudal and mediolateral oblique 3-D tomosynthesis images were obtained and synthetic 2-D images were generated. CAD analysis was submitted and interpreted. COMPARISON: 2023, 2022, and 2021. BREAST PARENCHYMAL COMPOSITION: Dense: The breasts are heterogeneously dense FINDINGS: There is a biopsy marker in the right. No suspicious masses are seen. There are no suspicious calcifications. No unexplained architectural distortion is seen. There are no skin or nipple abnormalities identified. There is no adenopathy seen on the images submitted. IMPRESSION: No mammographic or sonographic evidence to suggest malignancy is seen. The patient may return to screening mammography as per ACR guidelines. BI-RADS 1 - Negative. Reviewed, dictated and finalized at location B. STERED MIDWIFE IMPRESSION: No mammographic or sonographic evidence to suggest malignancy is seen. The pily ent may return to screening mammography as per ACR guidelines. BI-RADS 1 - Negative.
== END 2025-01-21 10:34 | disposition home or self-care (01) ==
LOC: ANHFOHIMG 10:34
PROVIDERS: PCP Internal Medicine; Visit Provider Internal Medicine
DX: Z12.31 Encounter for screening mammogram for malignant neoplasm of breast (principal)
CPT/HCPCS: 77063; 77067